=== PATIENT | female | born 1950 | race Caucasian/White ===

== ENCOUNTER 2017-05-02 02:40 | Emergency (ER) | payer OTHER, MEDICARE ==
[2017-05-02 02:47] VITALS: RESP 18; TEMP 97.9
[2017-05-02] MEDS ORDERED: ACETAMINOPHEN TAB 500 MG TAB PO STA (03:01)
--- NOTE | 2017-05-02 03:09 | ED ---
Trauma HPI - General Chief Complaint: Extremity Injury, Upper Stated Complaint: Rib Pain, Fall, SOB Time Seen by Provider: 05/02/17 02:53 Source: patient Mode of arrival: ambulatory Limitations: no limitations - History of Present Illness Initial Comments: 67-year-old female patient presented to the emergency department today for evaluation of right rib pain after experiencing a fall at home. Patient states around 2 AM she was getting up into her bed when she fell striking her right ribs on the edge of her nightstand. Patient states that since then she has been having significant pain to the right lower ribs. States that she is having pain to the right shoulder as well. She states after hitting the nightstand she fell landing on her right shoulder. Reports increased pain with movement of the arm. She denies hitting her head or losing consciousness. She denies any neck or back pain. She denies any hemoptysis. She denies any use of anticoagulants. Patient denies any headache, dizziness, weakness, abdominal pain, nausea, vomiting, or difficulties with bowel movements or urination. - Related Data Allergies Allergy/AdvReac Type Severity Reaction Status Date / Time erythromycin base Allergy Rash/Hives Verified 05/02/17 02:49 Iodinated Contrast- Oral and Allergy Dyspnea Verified 05/02/17 02:49 IV Dye Penicillins Allergy Swelling Verified 05/02/17 02:49 prednisolone Allergy Rash/Hives Verified 05/02/17 02:49 sulfamethoxazole Allergy Rash/Hives Verified 05/02/17 02:49 [From Bactrim] trimethoprim [From Bactrim] Allergy Rash/Hives Verified 05/02/17 02:49 Review of Systems ROS Statement: Those systems with pertinent positive or pertinent negative responses have been documented in the HPI. ROS Other: All systems not noted in ROS Statement are negative. Past Medical History Past Medical History: Hypertension Additional Past Medical History / Comment(s): gout History of Any Multi-Drug Resistant Organisms: None Reported Past Surgical History: Appendectomy, Bowel Resection, Cholecystectomy, Tonsillectomy Additional Past Surgical History / Comment(s): uterine suppension Past Psychological History: No Psychological Hx Reported Smoking Status: Never smoker Past Alcohol Use History: None Reported Past Drug Use History: None Reported General Exam Limitations: no limitations General appearance: alert, in no apparent distress, other (This is a well- developed, obese female patient in no acute distress. Vital signs upon presentation are temperature 97.9F, pulse 81, respirations 18, blood pressure 149/78, pulse ox 98% on room air.) Eye exam: Present: normal appearance, PERRL, EOMI. Absent: scleral icterus, conjunctival injection, periorbital swelling ENT exam: Present: normal exam, normal oropharynx, mucous membranes moist Respiratory exam: Present: normal lung sounds bilaterally, chest wall tenderness (Right lower rib tenderness). Absent: respiratory distress, wheezes , rales, rhonchi, stridor Cardiovascular Exam: Present: regular rate, normal rhythm, normal heart sounds. Absent: systolic murmur, diastolic murmur, rubs, gallop, clicks GI/Abdominal exam: Present: soft, tenderness (Right upper quadrant and midepigastric tenderness), normal bowel sounds. Absent: distended, guarding, rebound, rigid Neurological exam: Present: alert, oriented X3, CN II-XII intact Psychiatric exam: Present: normal affect, normal mood Skin exam: Present: warm, dry, intact, normal color. Absent: rash Course Vital Signs 05/02/17 05/02/17 02:43 04:54 Temperature 97.9 F Pulse Rate 81 71 Respiratory 18 18 Rate Blood Pressure 149/78 136/62 O2 Sat by Pulse 98 94 L Oximetry - Reevaluation(s) Reevaluation #1: 05/02/17 03:12 I did expect to patient that we would be obtaining a CT scan of the chest and abdomen with contrast. She reported that she is ALLERGIC to IV contrast dye and refuses to have the test done. I explained to her that we could administer premedications to prevent ALLERGIC reaction, she again refused to have the test done with contrast. We will perform the computed tomography scan without contrast. Medical Decision Making - Medical Decision Making 67-year-old female patient presented to the emergency department today for evaluation after falling and striking her ribs on her nightstand. Physical examination did reveal right lower rib tenderness, right upper quadrant abdominal tenderness, midepigastric abdominal tenderness. Patient is also complaining of some right shoulder pain, there was tenderness over the AC joint. Neurovascular status to the right upper extremity was intact. Patient did refuse IV contrast for CT so we did perform the study without. CT was negative for any acute processes in the thoracic and abdominal cavities. There was evidence of subtle wedging of the T12 vertebra felt to be chronic. X-ray of the right shoulder was negative for any acute abnormalities. Patient also refused pain medications here in the department. I did discuss findings of the studies with her. We will discharge her home at this time to follow-up with her primary care physician for further evaluation of the compression deformity of the T12 vertebra. She is instructed to apply ice to the painful areas. She is instructed to use incentive spirometry to prevent pneumonia. She is instructed to return here immediately for any new, worsening, or concerning symptoms. She verbalizes understanding and agrees with this plan. - Radiology Data Radiology results: report reviewed, image reviewed 3 views of the right shoulder shows bones and joints are unremarkable with no acute fracture dislocation. Soft tissues are nonacute. Impression by Dr. Robles shows no acute radiographic findings. CT of the chest, abdomen, and pelvis was obtained without contrast. Report was reviewed in its entirety. Impression by Dr. Robles shows no evidence for acute fracture or acute thoracic findings. Subtle anterior wedging at T12 is favored to be chronic in the presence of extensive degenerative disc changes. Also there are no acute intra-abdominal findings. Characterization of the wrist is limited without IV contrast. Disposition Clinical Impression: Contusion of rib on right side, Sprain of right shoulder, T12 compression fracture Disposition: HOME SELF-CARE Condition: Good Instructions: Vertebral Compression Fracture (ED), Shoulder Sprain (ED), Rib Contusion (ED) Additional Instructions: Follow-up with your primary care physician for further evaluation. Take over- the-counter Tylenol for pain control. Apply ice to the painful areas 20 minutes at a time at least 4 times daily. Return here immediately for any new, worsening, or concerning symptoms. Referrals: Pawan Galarza DO [Primary Care Provider] - 1-2 days Time of Disposition: 04:55
--- NOTE | 2017-05-02 04:46 | CT ---
EXAM: CT Chest Without Intravenous Contrast CLINICAL HISTORY: ITS.REASON CT Reason: Pain TECHNIQUE: Axial computed tomography images of the chest without intravenous contrast. CTDI is 16.32 mGy and DLP is 1073 mGy-cm. This CT exam was performed using one or more of the following dose reduction techniques: automated exposure control, adjustment of the mA and/or kV according to patient size, and/or use of iterative reconstruction technique. Coronal and sagittal reformatted images were created and reviewed. COMPARISON: No relevant prior studies available. FINDINGS: Lungs: Unremarkable. No mass. No consolidation. Pleural space: Unremarkable. No pneumothorax. No significant effusion. Heart: Unremarkable. No cardiomegaly. No significant pericardial effusion. Bones/joints: Slight anterior compression at the superior endplate of T12, favored to be chronic. Multilevel degenerative disc disease is present with disc space height loss and osteophytosis, as well as mild Schmorl's node formation. No dislocation. No acute fracture. Soft tissues: Unremarkable. Vasculature: Unremarkable. No thoracic aortic aneurysm. Lymph nodes: Unremarkable. No enlarged lymph nodes. Other findings: Old granulomatous changes. IMPRESSION: 1. No evidence for acute fracture or acute thoracic findings. 2. Subtle anterior wedging at T12 is favored to be chronic in the setting of extensive degenerative disc changes. EXAM: CT Abdomen and Pelvis Without Intravenous Contrast CLINICAL HISTORY: ITS.REASON CT Reason: Pain TECHNIQUE: Axial computed tomography images of the abdomen and pelvis without intravenous contrast. CTDI is 16.32 mGy and DLP is 1073 mGy-cm This CT exam was performed using one or more of the following dose reduction techniques: automated exposure control, adjustment of the mA and/or kV according to patient size, and/or use of iterative reconstruction technique. Coronal and sagittal reformatted images were created and reviewed. COMPARISON: No relevant prior studies available. FINDINGS: Lower thorax: No acute findings. ABDOMEN: Liver: Unremarkable. Gallbladder and bile ducts: Cholecystectomy clips are noted in the gallbladder fossa. No ductal dilation. Pancreas: Unremarkable. No ductal dilation. Spleen: Unremarkable. No splenomegaly. Adrenals: Unremarkable. No mass. Kidneys and ureters: Unremarkable. No obstructing stones. No hydronephrosis. Stomach and bowel: Small duodenal diverticulum is noted. No obstruction. No mucosal thickening. Appendix: No findings to suggest acute appendicitis. PELVIS: Bladder: Unremarkable. No stones. Reproductive: Unremarkable as visualized. ABDOMEN and PELVIS: Intraperitoneal space: Unremarkable. No free air. No significant fluid collection. Bones/joints: Multilevel degenerative disc disease and facet arthropathy. There is a chronic grade 1 anterolisthesis of L4 on L5. No acute fracture. No dislocation. Soft tissues: Small fatty umbilical hernia. Vasculature: Mild atherosclerosis. No abdominal aortic aneurysm. Lymph nodes: Unremarkable. No enlarged lymph nodes. IMPRESSION: 1. No acute intra-abdominal findings. Characterization of the viscera limited without IV contrast.
--- NOTE | 2017-05-02 04:48 | XR ---
EXAM: XR Right Shoulder Complete, 2 or More Views CLINICAL HISTORY: ITS.REASON XR Reason: Pain TECHNIQUE: Two or more views of the right shoulder. COMPARISON: No relevant prior studies available. FINDINGS: Bones/joints: No acute fracture. No dislocation. Soft tissues: Nonacute. IMPRESSION: No acute radiographic findings.
[2017-05-02 04:57] VITALS: BP 136/62; PULSE 71
== END 2017-05-02 05:07 | disposition home or self-care (01) ==
LOC: EC 02:40
DX: S22.080A Wedge compression fracture of T11-T12 vertebra, initial encounter for closed fracture (principal); S43.401A Unspecified sprain of right shoulder joint, initial encounter; S20.211A Contusion of right front wall of thorax, initial encounter; R10.31 Right lower quadrant pain; R10.13 Epigastric pain; Z88.0 Allergy status to penicillin; Z88.2 Allergy status to sulfonamides; Z88.1 Allergy status to other antibiotic agents; Z91.041 Radiographic dye allergy status; Z88.8 Allergy status to other drugs, medicaments and biological substances; Z53.29 Procedure and treatment not carried out because of patient's decision for other reasons; W06.XXXA Fall from bed, initial encounter; Y92.009 Unspecified place in unspecified non-institutional (private) residence as the place of occurrence of the external cause
CPT/HCPCS: 71250; 74176; 99284

== ENCOUNTER → 2017-06-23 | Outpatient (CLI) | payer OTHER, MEDICARE ==
--- NOTE | 2017-06-23 10:55 | US ---
EXAMINATION TYPE: US duplex aorta DATE OF EXAM: 06/23/2017 COMPARISON: CT 2018 CLINICAL HISTORY: I71.4 Abdominal aortic aneurysm; controlled HTN EXAM MEASUREMENTS: Abdominal Aorta: Proximal: 1.9cm Transverse Mid: 2.4cm Transverse Distal: 1.5cm A/P Bifurcation: not well seen; 1.3cm Transverse Right ERIKA and 1.4cm Transverse Left ERIKA IMPRESSION: No evidence for abdominal aortic aneurysm.
== END | disposition home or self-care (01) ==
LOC: RADUSWWP 10:19
PROVIDERS: ATTEND Family Medicine
DX: I71.4 Abdominal aortic aneurysm, without rupture (principal)
CPT/HCPCS: 76706

== ENCOUNTER 2017-09-02 19:31 | Emergency (ER) | payer OTHER, MEDICARE ==
[2017-09-02] MEDS ORDERED: ACETAMINOPHEN TAB 500 MG TAB PO STA (20:27)
--- NOTE | 2017-09-02 21:04 | ED ---
Extremity Problem HPI - General Chief complaint: Extremity Problem,Nontraumatic Stated complaint: Swelling/Pain in leg Time Seen by Provider: 09/02/17 20:02 Source: patient Mode of arrival: wheelchair Limitations: no limitations - History of Present Illness Initial comments: Patient is a 67-year-old female presents with a chief complaint of right-sided lower extremity pain and swelling. The patient states that her symptoms began around 11:00 this morning. She was at work when these occurred, she cannot identify an inciting incident. There are no aggravating or alleviating factors. The patient states that she has a history of a DVT that happened years ago. She has not been on blood thinners in many years. Patient states that her last DVT is unknown whether it was provoked or not. At this time, patient denies any shortness of breath, chest pain, or other symptoms. - Related Data Home Medications Medication Instructions Recorded Confirmed Atenolol [Tenormin] 25 mg PO DAILY 09/02/17 09/02/17 Multivitamins, Thera [Multivitamin 1 tab PO DAILY 09/02/17 09/02/17 (formulary)] Ranitidine HCl [Zantac] 150 mg PO BID 09/02/17 09/02/17 Triamterene-Hctz 37.5-25Mg 1 cap PO DAILY 09/02/17 09/02/17 [Dyazide 37.5-25 Capsule] Allergies Allergy/AdvReac Type Severity Reaction Status Date / Time erythromycin base Allergy Rash/Hives Verified 09/02/17 20:07 Iodinated Contrast- Oral and Allergy Dyspnea Verified 09/02/17 20:07 IV Dye Penicillins Allergy Swelling Verified 09/02/17 20:07 prednisolone Allergy Rash/Hives Verified 09/02/17 20:07 sulfamethoxazole Allergy Rash/Hives Verified 09/02/17 20:07 [From Bactrim] trimethoprim [From Bactrim] Allergy Rash/Hives Verified 09/02/17 20:07 Review of Systems ROS Statement: Those systems with pertinent positive or pertinent negative responses have been documented in the HPI. ROS Other: All systems not noted in ROS Statement are negative. Musculoskeletal: Reports: myalgia, other (Lower extremity edema) Past Medical History Past Medical History: Hypertension Additional Past Medical History / Comment(s): gout History of Any Multi-Drug Resistant Organisms: None Reported Past Surgical History: Appendectomy, Bowel Resection, Cholecystectomy, Tonsillectomy Additional Past Surgical History / Comment(s): uterine suspension Past Psychological History: No Psychological Hx Reported Smoking Status: Never smoker Past Alcohol Use History: None Reported Past Drug Use History: None Reported General Exam Limitations: no limitations General appearance: alert, in no apparent distress Head exam: Present: atraumatic, normocephalic Eye exam: Present: normal appearance ENT exam: Present: normal exam Neck exam: Present: normal inspection Respiratory exam: Present: normal lung sounds bilaterally. Absent: respiratory distress, wheezes Cardiovascular Exam: Present: regular rate, normal rhythm GI/Abdominal exam: Present: soft. Absent: distended, tenderness Rectal exam: Present: deferred Extremities exam: Present: normal inspection, tenderness, calf tenderness, other (Patient has tenderness of the right lower calf. Palpation reveals tenderness along the deep venous system. The right lower extremity is mildly more swollen when compared to left. There are 2+ DP pulses bilaterally. Cap refill is less than 2 seconds bilaterally.) Back exam: Present: normal inspection Neurological exam: Present: alert, oriented X3 Psychiatric exam: Present: normal affect, normal mood Skin exam: Present: warm, dry, intact Course Vital Signs 09/02/17 19:39 Temperature 98.5 F Pulse Rate 67 Respiratory 16 Rate Blood Pressure 177/81 O2 Sat by Pulse 97 Oximetry Medical Decision Making - Medical Decision Making Patient presents with a chief complaint of right lower extremity pain and swelling. She has a history of DVT many years ago. On initial evaluation, vital are stable, patient is in no acute distress. Patient will be evaluated with venous Doppler of the right lower extremity. Patient given Tylenol for pain. Patient denies any chest pain or shortness of breath at this time. 9:35 PM Ultrasound images of the venous system in the right lower extremity are negative for DVT. At this time, does not appear to be life threatening etiology of right lower extremity pain and swelling. Considered heart failure however less likely given the clear lung sounds, lack of shortness of breath or dyspnea, and lack of his medical history. Patient is able to bear weight and really well without assistance. At this time, patient is stable for discharge and follow-up with primary care in 1-2 days. Patient was instructed to take Tylenol for pain as needed. Patient was instructed to return to the emergency department if symptoms worsen or change. She was given explicit signs and symptoms that should prompt immediate return. She verbalizes understanding. Disposition Clinical Impression: Leg pain, Deep venous thrombosis of upper extremity Disposition: HOME SELF-CARE Condition: Good Is patient prescribed a controlled substance at d/c from ED?: No Referrals: Pawan Galarza DO [Primary Care Provider] - 1-2 days
--- NOTE | 2017-09-02 21:28 | US ---
EXAMINATION TYPE: US venous doppler duplex LE RT DATE OF EXAM: 09/02/2017 8:27 PM COMPARISON: NONE CLINICAL HISTORY: Pain. Right leg pain. SIDE PERFORMED: Right TECHNIQUE: The lower extremity deep venous system is examined utilizing real time linear array sonog alvina with graded compression, doppler sonography and color-flow sonography. VESSELS IMAGED: External Iliac Vein (EIV) Common Femoral Vein Deep Femoral Vein Greater Saphenous Vein * Femoral Vein Popliteal Vein Small Saphenous Vein * Right Leg: Negative for DVT No evidence of DVT right leg. IMPRESSION: Negative exam. No evidence of deep venous thrombosis in the right leg.
[2017-09-02 21:57] VITALS: BP 179/74; PULSE 60; RESP 18; TEMP 98.4
== END 2017-09-02 21:57 | disposition home or self-care (01) ==
LOC: EC 19:31
DX: M79.661 Pain in right lower leg (principal); I82.629 Acute embolism and thrombosis of deep veins of unspecified upper extremity; I10 Essential (primary) hypertension; Z88.0 Allergy status to penicillin; Z88.1 Allergy status to other antibiotic agents; Z88.2 Allergy status to sulfonamides; Z88.8 Allergy status to other drugs, medicaments and biological substances; Z91.041 Radiographic dye allergy status; Z79.899 Other long term (current) drug therapy
CPT/HCPCS: 99283

== ENCOUNTER → 2018-09-25 | Outpatient (CLI) | payer BC | END | disposition home or self-care (01) | LOC: LABPAT 12:31 | PROVIDERS: ATTEND Surgery | DX: Z01.812 Encounter for preprocedural laboratory examination (principal); Z01.818 Encounter for other preprocedural examination | CPT/HCPCS: 84132; 93005 ==

== ENCOUNTER 2018-09-28 09:27 | Day surgery (SDC) | payer BC ==
[2018-09-25 08:39] VITALS: BMI 49.4
[~2018-09-28 09:27] MED LIST: HEPARIN SODIUM,PORCINE 5,000 UNIT/ML 1 ML VIAL SQ ONE; LACTATED RINGERS 1,000 ML IV SCH; LIDOCAINE 1% 20 ML VIAL (10MG/ML) FOR IV START INTRADERMA PRN; ONDANSETRON 4 MG/2 ML VIAL IVP ONE; Pre Op ABX Message 1 EACH MISC MISCELLANE ONE; fentaNYL (PF) 50 MCG/ML 2 ML AMP IVP PRN
[2018-09-28] MEDS ORDERED: ceFAZolin 3 GM in SODIUM CHLORIDE 0.9% 100 ML IVPB ONE (10:27)
--- NOTE | 2018-09-28 11:12 | NM ---
EXAMINATION TYPE: NM sentinel node injection DATE OF EXAM: 09/28/2018 COMPARISON: 09/08/2018 HISTORY: Right breast cancer TECHNIQUE AND FINDINGS: The procedure of sentinel lymph node injection was explained to the patient. The benefits, alternatives, and risks were discussed. An informed consent was then obtained. Overlying skin is cleaned with sterile alcohol. Following this, 521 uCi Tc99m Tilmanocept was inject ed in the upper outer aspect of the right nipple intradermally. The patient tolerated the procedure well without any immediate complication. The patient was kept in the radiology department for short stay after the procedure and then taken to surgery for surgical p rocedure what is presumed intraoperative gamma probe will be used for sentinel lymph node detection. IMPRESSION: Right breast radiotracer injection for sentinel node localization as above.
[2018-09-28] MEDS ORDERED: LIDOCAINE 1% INJ 10MG/ML (20 ML MDV) SQ ONE (11:21)
[2018-09-28] MEDS ORDERED: METHYLENE BLUE 10 MG/ML (10 ML VIAL) MISCELLANE ONE (13:04)
[2018-09-28] MEDS ORDERED: LIDOCAINE 1% INJ 10MG/ML (20 ML MDV) ONE (13:04)
[2018-09-28] MEDS ORDERED: SUCCINYLCHOLINE CHLORIDE 100 MG/5 ML SYR IV ONE (13:04)
[2018-09-28] MEDS ORDERED: MIDAZOLAM 2 MG/2 ML VIAL ONE (13:04)
[2018-09-28] MEDS ORDERED: fentaNYL (PF) 50 MCG/ML 2 ML AMP ONE (13:04)
[2018-09-28] MEDS ORDERED: ePHEDrine SULFATE/0.9% NACL/PF 50 MG/5 ML SYRINGE IV ONE (13:04)
[2018-09-28] MEDS ORDERED: PROPOFOL 10 MG/ML 20 ML VIAL IV ONE (13:04)
[2018-09-28] MEDS ORDERED: LACTATED RINGERS 1,000 ML IV ONE (14:26)
[2018-09-28] MEDS ORDERED: traMADol 50 MG TAB PO PRN (14:54)
[2018-09-28] MEDS ORDERED: NALOXONE 0.4 MG/ML 1 ML VIAL IV PRN (14:54)
--- NOTE | 2018-09-28 14:58 | P.OP ---
Date of Procedure: 09/28/18 Procedure(s) Performed: REOPERATIVE DIAGNOSIS: Right breast cancer POSTOPERATIVE DIAGNOSIS: Same PROCEDURE: Right Breast wire localization lumpectomy with sentinel lymph node biopsy SURGEON: Kayli EBL: Minimal ANESTHESIA: General COMPLICATIONS: None OPERATIVE PROCEDURE: Patient was placed on the operating room table in the supine position. 2 mL of methylene blue was injected into the subareolar space. The breast was then massaged for 5 minutes. The breast was prepped and draped in usual sterile fashion. The right axilla was addressed at that time. The hot spot in the right axilla was identified. A small curvilinear incision was made using the scalpel. Dissection down through the subcutaneous tissues took place using electrocautery. Using the neoprobe I identified a total of 2 sentinel lymph nodes. Both of these were blue in color. Clinically these appeared benign. They were soft and appropriate size. The operative site was inspected and no bleeding was seen. The subcutaneous tissues were closed using 3-0 Vicryl sutures. The skin was closed using 4-0 Monocryl sutures. The wire entrance site was then addressed. This was present at the 9:00 location. A curvilinear incision was made medial to the wire entrance site. Dissection superficially took place using electrocautery until the wire was brought out through this incision site. I followed the wire down into the breast tissue. An adequate lumpectomy specimen then took place around the wire. Margins of 1.5-2 cm worth attempted to be achieved. Palpation of the specimen suggested that the inferior margins were somewhat close. I took an additional margin inferiorly and this margin was painted the appropriate color on the new margin side. The initial specimen was also painted the appropriate 6 colors. Clips were used to identify the lumpectomy cavity. The clip was confirmed to be within the lumpectomy specimen by radiology. The subcutaneous tissues were closed using 3-0 Vicryl sutures. The skin was closed using a running 4-0 Monocryl stitch. Skin glue and sterile dressings were then applied. DISPOSITION: Stable to recovery room
[2018-09-28 15:08] VITALS: TEMP 98.4
[2018-09-28 15:54] VITALS: RESP 16
[2018-09-28] MEDS ORDERED: ACETAMINOPHEN IV (For NPO) 1,000 MG/100 ML VIAL IVPB ONE (16:10)
[2018-09-28 16:44] VITALS: BP 132/81; PULSE 70
--- NOTE | 2018-09-29 08:34 | MM ---
EXAMINATION TYPE: MG pre op needle loc RT DATE OF EXAM: 09/28/2018 COMPARISON: 06/19/2018, 09/08/2018 CLINICAL HISTORY: Abnormal core biopsy right breast TECHNIQUE: Needle localization with wire placement and surgical excision of area of concern in the right breast. FINDINGS: The procedure of needle localization with wire placement and than surgical excision was explained to the patient. Benefits, alternatives, and risks were discussed. An informed consent was then obtained. The shortest pathway for procedure was chosen. Shortest pathway was lateral approach. The overlying skin was prepped and draped in usual sterile fashion. Lidocaine buffered with bicarbonate was used as anesthetic into the skin and subcutaneous tissue up to the level of area of concern. A 5 cm needle was used. It was placed via a lateral approach under mammographic guidance. Subsequent 90 degrees mammogram show the needle to be in satisfactory position relative to the targeted area. At this point, wire was placed and the needle was withdrawn. The wire was fixed to patient's skin. Images were marked for surgeon. The patient tolerated the procedure well without any immediate complication. The patient was kept in the radiology department for short stay after the procedure and then taken to surgery for surgical excision. Targeted biopsy clip and lesion and wire are identified in specimen mammogram. The patient was kept in hospital for short stay after the procedure and then discharged home in stable condition. IMPRESSION: Successful, uncomplicated needle localization with wire placement and surgical excision of biopsy clip and lesion in the right breast, full pathology results to follow. Pathology Results: Malignant A. SENTINEL LYMPH NODES, RIGHT BREAST: Two lymph nodes, one node positive for isolated tumor cells. CK7 and MARTIN immunoperoxidase stains are confirmatory (controls appropriate). B. 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 Margins negative for malignancy. Tumor is focally less than 1 mm from the green inked/inferior margin. See Surgical Pathology Cancer Case Summary. C. RIGHT BREAST, NEW INFERIOR MARGIN, EXCISION: Benign breast tissue. Recommendation Surgical consult of the right breast. MIKE
== END 2018-09-28 17:28 | disposition home or self-care (01) ==
LOC: OR 09:27
PROVIDERS: ATTEND Surgery
DX: C50.911 Malignant neoplasm of unspecified site of right female breast (principal); Z88.5 Allergy status to narcotic agent; Z88.0 Allergy status to penicillin; Z88.2 Allergy status to sulfonamides; Z88.1 Allergy status to other antibiotic agents; Z79.899 Other long term (current) drug therapy
CPT/HCPCS: 19301; 88342; 88307; 88341; 76098; 19281; 38792; A9520; J2250; J1644; J0690; J2001; Q9968; J3010; J0131; J0330; J2704

== ENCOUNTER → 2018-11-25 | Outpatient (CLI) | payer BC ==
[2018-11-25 09:53] LABS: Basophils # (A) 0.1 k/uL (0-0.2); Basophils % (A) 2 %; Eosinophils # (A) 0.1 k/uL (0-0.7); Eosinophils % (A) 2 %; HCT 45.1 % (34.0-46.0); HGB 14.7 gm/dL (11.4-16.0); Lymphocytes # (A) 0.8 k/uL (1.0-4.8); Lymphocytes % (A) 15 %; MCH 28.8 pg (25.0-35.0); MCHC 32.7 g/dL (31.0-37.0); Mean Platelet Volume 6.6; Monocytes # (A) 0.4 k/uL (0-1.0); Monocytes % (A) 8 %; Neutrophils # (A) 3.9 k/uL (1.3-7.7); Neutrophils % (A) 70 %; Platelet Count 193 k/uL (150-450); RBC 5.12 m/uL (3.80-5.40); RDW 13.7 % (11.5-15.5); WBC 5.5 k/uL (3.8-10.6)
[2018-11-25 17:20] LABS: African American GFR (CKD) 77.2 (60.0-200.0); Albumin 4.2 g/dL (3.80-4.90); Albumin/Globulin Ratio 2.1 (1.60-3.17); BUN/Creat Ratio 17.78 Ratio (12.00-20.00); Calcium 9.3 mg/dL (8.7-10.3); Chol/HDL Ratio 4.52; LDL Cholesterol,Calculated 135.2 mg/dL (0.0-131.0); Potassium 4.3 mmol/L (3.5-5.5); Total Bilirubin 0.7 mg/dL (0.2-1.2); Total Protein 6.2 g/dL (6.2-8.2); Uric Acid 8.7 mg/dL (2.9-7.7); VLDL Calculation 33.8 mg/dL (5.00-40.00)
== END | disposition home or self-care (01) ==
LOC: LABWHC1 09:09
PROVIDERS: ATTEND Family Medicine
DX: M10.9 Gout, unspecified (principal); Z13.29 Encounter for screening for other suspected endocrine disorder; Z13.220 Encounter for screening for lipoid disorders
CPT/HCPCS: 36415; 80053; 80061; 84443; 84550; 85025

== ENCOUNTER → 2019-03-05 | Outpatient (CLI) | payer BC, OTHER ==
--- NOTE | 2019-03-05 09:45 | MM ---
Reason for exam: follow-up at short interval from prior study. Last mammogram was performed 7 years and 3 months ago. History: Patient is postmenopausal and has history of breast cancer at age 68. Malignant MG pre op needle loc RT of the right breast, September 28, 2018. Lumpectomy of the right breast, September 28, 2018. Malignant MG stereo VAD BX RT of the right breast, September 08, 2018. Benign excisional biopsy of the left breast, 1997. Taking progesterone for 3 months beginning at age 57. Physical Findings: Nurse did not find any significant physical abnormalities on exam. MG 3D Diag Mammo W/Cad BRIANA Bilateral CC and MLO view(s) were taken. Prior study comparison: December 13, 2011, CAD bilateral diagnostic mammogram. February 22, 2011, bilateral digital screening mammo w/CAD. The breast tissue is heterogeneously dense. This may lower the sensitivity of mammography. Asymmetry greater in the right breast. Post surgical changes right upper outer quadrant. No significant new findings when compared with previous films. These results were verbally communicated with the patient and result sheet given to the patient on 03/05/19. ASSESSMENT: Benign, BI-RAD 2 RECOMMENDATION: Follow-up diagnostic mammogram of both breasts in 1 year.
== END | disposition home or self-care (01) ==
LOC: RADMAMWWP 06:56
PROVIDERS: ATTEND Surgery
DX: R92.8 Other abnormal and inconclusive findings on diagnostic imaging of breast (principal)
CPT/HCPCS: 77062; 77066

== ENCOUNTER → 2019-03-11 | Outpatient (CLI) | payer BC, OTHER ==
--- NOTE | 2019-03-12 06:56 | US ---
EXAMINATION TYPE: US transvaginal DATE OF EXAM: 03/11/2019 COMPARISON: Prior pelvic ultrasound February 13, 2010 CLINICAL HISTORY: N95.0 Post menopausal Bleeding. Intermittent spotting TECHNIQUE: Transvaginal (TV). Date of LMP: unknown EXAM MEASUREMENTS: Uterus: 9.1 x 4.1 x 5.3 cm Endometrial Stripe: 0.9 cm Right Ovary: unable to visualize Left Ovary: unable to visualize 1. Uterus: Anteverted heterogeneous, Nabothian cysts noted, possible fibroid anterior body = 1.9 x 1.3cm 2. Endometrium: appears slightly thickened 3. Right Ovary: Obscured by overlying bowel gas 4. Left Ovary: Obscured by overlying bowel gas 5. Bilateral Adnexa: appears wnl 6. Posterior cul-de-sac: wnl Nabothian cysts are seen in the cervix on initial images. Uterus is overall heterogeneous with endome trium measuring up to 9 mm which is thickened for postmenopausal female. There is suggestion of subse denver small 1.3 cm fibroid on image 22. No free fluid. IMPRESSION: Abnormal thickening of endometrial stripe more prominent than 2010 study, further investi gation with endometrial biopsy advised to rule out carcinoma.
== END | disposition home or self-care (01) ==
LOC: RADUSWWP 16:39
PROVIDERS: ATTEND Obstetrics & Gynecology
DX: R93.89 Abnormal findings on diagnostic imaging of other specified body structures (principal); N95.0 Postmenopausal bleeding
CPT/HCPCS: 76830

== ENCOUNTER → 2019-05-25 | Outpatient (CLI) | payer BC ==
[2019-05-25 09:35] LABS: Basophils % (A) 0 %; Eosinophils # (A) 0.1 k/uL (0-0.7); Eosinophils % (A) 2 %; HCT 44.2 % (34.0-46.0); HGB 14.3 gm/dL (11.4-16.0); Lymphocytes % (A) 18 %; MCH 28.7 pg (25.0-35.0); MCHC 32.4 g/dL (31.0-37.0); MCV 88.5 fL (80.0-100.0); Mean Platelet Volume 7.1; Monocytes # (A) 0.4 k/uL (0-1.0); Monocytes % (A) 6 %; Neutrophils # (A) 4.2 k/uL (1.3-7.7); Neutrophils % (A) 72 %; Platelet Count 293 k/uL (150-450); RBC 4.99 m/uL (3.80-5.40); RDW 13.2 % (11.5-15.5); WBC 5.8 k/uL (3.8-10.6)
[2019-05-25 17:31] LABS: African American GFR (CKD) 88.4 (60.0-200.0); Albumin 4.2 g/dL (3.80-4.90); Albumin/Globulin Ratio 1.68 (1.60-3.17); Anion Gap 13.1 mmol/L (4.00-12.00); BUN/Creat Ratio 17.5 Ratio (12.00-20.00); Calcium 9.5 mg/dL (8.7-10.3); Carbon Dioxide 24.9 mmol/L (21.6-31.8); Globulin 2.5 g/dL (1.6-3.3); Non-African American GFR(CKD) 76.3 (60.0-200.0); Potassium 4.4 mmol/L (3.5-5.5); Total Bilirubin 0.5 mg/dL (0.2-1.2); Total Protein 6.7 g/dL (6.2-8.2)
[2019-05-25 18:17] LABS: Cancer Antigen 153 18.2 U/mL (0.0-32.3)
== END | disposition home or self-care (01) ==
LOC: LABWHC1 08:00
PROVIDERS: ATTEND Internal Medicine Hematology & Oncology
DX: C50.411 Malignant neoplasm of upper-outer quadrant of right female breast (principal)
CPT/HCPCS: 36415; 80053; 85025; 86300

== ENCOUNTER → 2019-07-28 | Outpatient (CLI) | payer BC ==
--- NOTE | 2019-07-28 08:02 | US ---
EXAMINATION TYPE: US venous doppler duplex LE RT DATE OF EXAM: 07/28/2019 7:34 AM COMPARISON: NONE CLINICAL HISTORY: M79.661 Pain in R lower limb, R22.2 swelling. Pain and edema right leg for 1 week SIDE PERFORMED: right TECHNIQUE: The lower extremity deep venous system is examined utilizing real time linear array sonog alvina with graded compression, doppler sonography and color-flow sonography. VESSELS IMAGED: External Iliac Vein (EIV) Common Femoral Vein Deep Femoral Vein Greater Saphenous Vein * Femoral Vein Popliteal Vein Small Saphenous Vein * Proximal Calf Veins (* superficial vessels) Right Leg: no evidence of DVT IMPRESSION: No evidence for DVT at this time.
[2019-07-28 08:54] LABS: Basophils % (A) 1 %; Eosinophils # (A) 0.1 k/uL (0-0.7); Eosinophils % (A) 2 %; HCT 43.9 % (34.0-46.0); HGB 14.8 gm/dL (11.4-16.0); Lymphocytes # (A) 0.8 k/uL (1.0-4.8); Lymphocytes % (A) 13 %; MCH 29.9 pg (25.0-35.0); MCHC 33.6 g/dL (31.0-37.0); MCV 88.7 fL (80.0-100.0); Monocytes # (A) 0.4 k/uL (0-1.0); Monocytes % (A) 7 %; Neutrophils # (A) 4.8 k/uL (1.3-7.7); Neutrophils % (A) 76 %; Platelet Count 295 k/uL (150-450); RBC 4.95 m/uL (3.80-5.40); RDW 13.4 % (11.5-15.5); WBC 6.3 k/uL (3.8-10.6)
[2019-07-28 09:00] LABS: ALT 30 U/L (4-34); AST 29 U/L (14-36); African American GFR (CKD) >90 (>60 ml/min/1.73 sqM); Albumin 4.2 g/dL (3.5-5.0); Alkaline Phosphatase 112 U/L (38-126); Anion Gap 12 mmol/L; Blood Urea Nitrogen 16 mg/dL (7-17); Calcium 9.7 mg/dL (8.4-10.2); Carbon Dioxide 27 mmol/L (22-30); Chloride 102 mmol/L (98-107); Glucose 110 mg/dL (74-99); Non-African American GFR(CKD) 79 (>60 ml/min/1.73 sqM); Potassium 4.3 mmol/L (3.5-5.1); Sodium 141 mmol/L (137-145); Total Bilirubin 0.6 mg/dL (0.2-1.3); Total Protein 7.5 g/dL (6.3-8.2); Uric Acid 7.9 mg/dL (3.7-7.4)
[2019-07-28 16:50] LABS: Cancer Antigen 153 15.7 U/mL (0.0-32.3)
== END | disposition home or self-care (01) ==
LOC: RADUSWWP 07:13
PROVIDERS: ATTEND Family Medicine
DX: M79.661 Pain in right lower leg (principal)
CPT/HCPCS: 80053; 84550; 85025; 86300

== ENCOUNTER → 2019-11-23 | Outpatient (CLI) | payer BC ==
[2019-11-25 11:07] LABS: African American GFR (CKD) 67.5 (60.0-200.0); Albumin 4.3 g/dL (3.80-4.90); Albumin/Globulin Ratio 1.79 (1.60-3.17); Anion Gap 14.4 mmol/L (4.00-12.00); Calcium 9.7 mg/dL (8.7-10.3); Carbon Dioxide 22.6 mmol/L (21.6-31.8); Globulin 2.4 g/dL (1.6-3.3); Non-African American GFR(CKD) 58.2 (60.0-200.0); Potassium 4.3 mmol/L (3.5-5.5); Total Bilirubin 0.6 mg/dL (0.2-1.2); Total Protein 6.7 g/dL (6.2-8.2)
== END | disposition home or self-care (01) ==
LOC: LABWHC1 07:09
PROVIDERS: ATTEND Internal Medicine Hematology & Oncology
DX: C50.411 Malignant neoplasm of upper-outer quadrant of right female breast (principal)
CPT/HCPCS: 36415; 82306; 86300

== ENCOUNTER → 2020-01-27 | Outpatient (CLI) | payer BC ==
--- NOTE | 2020-01-27 14:26 | MM ---
Reason for exam: additional evaluation requested from prior study. Last mammogram was performed 11 months ago. History: Patient is postmenopausal and has history of breast cancer at age 68. Malignant MG pre op needle loc RT of the right breast, September 28, 2018. Lumpectomy of the right breast, September 28, 2018. Malignant MG stereo VAD BX RT of the right breast, September 08, 2018. Benign excisional biopsy of the left breast, 1997. Taking progesterone for 3 months beginning at age 57. Taking antineoplastic for 1 year. Physical Findings: Nurse did not find any significant physical abnormalities on exam. MG 3D Diag Mammo W/Cad BRIANA Bilateral CC and MLO view(s) were taken. Prior study comparison: March 05, 2019, bilateral MG 3d diag mammo w/cad BRIANA. December 13, 2011, CAD bilateral diagnostic mammogram. There are scattered fibroglandular densities. No significant new findings when compared with previous films. These results were verbally communicated with the patient and result sheet given to the patient on 01/27/20. ASSESSMENT: Benign, BI-RAD 2 RECOMMENDATION: Follow-up diagnostic mammogram of both breasts in 1 year. Manage patient on a clinical basis.
== END | disposition home or self-care (01) ==
LOC: RADMAMWWP 13:42
PROVIDERS: ATTEND Surgery
DX: Z08 Encounter for follow-up examination after completed treatment for malignant neoplasm (principal); Z85.3 Personal history of malignant neoplasm of breast
CPT/HCPCS: 77062; 77066

== ENCOUNTER → 2020-03-16 | Outpatient (CLI) | payer BC ==
[2020-03-16 12:32] LABS: Basophils % (A) 1 %; Eosinophils # (A) 0.1 k/uL (0-0.7); Eosinophils % (A) 2 %; HGB 15.4 gm/dL (11.4-16.0); Lymphocytes % (A) 21 %; MCH 29.4 pg (25.0-35.0); MCHC 33.5 g/dL (31.0-37.0); MCV 87.8 fL (80.0-100.0); Mean Platelet Volume 6.7; Monocytes # (A) 0.3 k/uL (0-1.0); Monocytes % (A) 7 %; Neutrophils # (A) 3.2 k/uL (1.3-7.7); Neutrophils % (A) 68 %; Platelet Count 208 k/uL (150-450); RBC 5.23 m/uL (3.80-5.40); RDW 12.8 % (11.5-15.5); WBC 4.7 k/uL (3.8-10.6)
[2020-03-16 20:01] LABS: African American GFR (CKD) 76.7 (60.0-200.0); Albumin 4.4 g/dL (3.80-4.90); Albumin/Globulin Ratio 1.91 (1.60-3.17); Anion Gap 7.9 mmol/L (4.00-12.00); BUN/Creat Ratio 16.67 Ratio (12.00-20.00); Calcium 9.4 mg/dL (8.7-10.3); Carbon Dioxide 27.1 mmol/L (21.6-31.8); Globulin 2.3 g/dL (1.6-3.3); Non-African American GFR(CKD) 66.2 (60.0-200.0); Potassium 4.2 mmol/L (3.5-5.5); Total Bilirubin 0.6 mg/dL (0.2-1.2); Total Protein 6.7 g/dL (6.2-8.2)
[2020-03-16 20:49] LABS: Cancer Antigen 153 20.1 U/mL (0.0-32.3)
== END | disposition home or self-care (01) ==
LOC: LABWHC1 11:48
PROVIDERS: ATTEND Family Medicine
DX: C50.411 Malignant neoplasm of upper-outer quadrant of right female breast (principal)
CPT/HCPCS: 36415; 80053; 85025; 86300

== ENCOUNTER → 2020-09-21 | Outpatient (CLI) | payer BC, OTHER ==
--- NOTE | 2020-09-21 09:19 | MM ---
Reason for exam: additional evaluation requested from prior study. Last mammogram was performed 8 months ago. History: Patient is postmenopausal and has history of breast cancer at age 68. Malignant MG pre op needle loc RT of the right breast, September 28, 2018. Lumpectomy of the right breast, September 28, 2018. Malignant MG stereo VAD BX RT of the right breast, September 08, 2018. Benign excisional biopsy of the left breast, 1997. Taking progesterone for 3 months beginning at age 57. Taking antineoplastic beginning at age 68. Physical Findings: Nurse did not find any significant physical abnormalities on exam. MG 3D Diag Mammo W/Cad BRIANA Bilateral CC and MLO view(s) were taken. Prior study comparison: January 27, 2020, bilateral MG 3d diag mammo w/cad BRIANA. March 05, 2019, bilateral MG 3d diag mammo w/cad BRIANA. Right new dystrophic appearing calcifications subareolar, probably benign. Otherwise stable right post lumpectomy and radiation change. Left breast negative. These results were verbally communicated with the patient and result sheet given to the patient on 09/21/20. ASSESSMENT: Probably benign, BI-RAD 3 RECOMMENDATION: Follow-up diagnostic mammogram of the right breast in 6 months.
== END | disposition home or self-care (01) ==
LOC: RADMAMWWP 07:08
PROVIDERS: ATTEND Obstetrics & Gynecology
DX: R92.1 Mammographic calcification found on diagnostic imaging of breast (principal); Z85.3 Personal history of malignant neoplasm of breast; Z79.899 Other long term (current) drug therapy
CPT/HCPCS: 77062; 77066

== ENCOUNTER → 2020-10-04 | Outpatient (CLI) | payer BC, OTHER ==
--- NOTE | 2020-10-04 08:53 | CT ---
EXAMINATION TYPE: CT abdomen pelvis wo con DATE OF EXAM: 10/04/2020 COMPARISON: 05/02/2017 HISTORY: Abdominal and gas pain. CT DLP: 1465.7 mGycm Examination of the solid and hollow viscera is limited given the lack of contrast. FINDINGS: LUNG BASES: No evidence for nodule. No evidence for infiltrate. Small hiatal hernia noted. LIVER/GB: The gallbladder is surgically absent. All No space-occupying hepatic lesion. PANCREAS: No pancreatic mass identified. No inflammatory process seen. SPLEEN: No evidence for splenomegaly. No intrasplenic lesions seen. ADRENALS: No adrenal nodules identified. No evidence for thickening. KIDNEYS: No evidence for renal mass. No nephrolithiasis. No hydronephrosis. BOWEL: Appendix has a normal appearance. No evidence of bowel obstruction. No inflammatory process. Lymph nodes: No evidence for adenopathy greater than 1 cm. Abdominal aorta: Atheromatous changes seen. No evidence for aneurysm. Genital organs: No significant abnormality. Other: No significant abnormality. IMPRESSION: NO SIGNIFICANT ABNORMALITY TO ACCOUNT FOR THE PATIENT'S SYMPTOMS.
== END | disposition home or self-care (01) ==
LOC: RADCTMAIN 08:14
PROVIDERS: ATTEND Family Medicine
DX: R10.9 Unspecified abdominal pain (principal); R14.1 Gas pain
CPT/HCPCS: 74176

== ENCOUNTER 2020-10-11 10:45 | Observation (INO) | payer BC, OTHER ==
[2020-10-11] MEDS ORDERED: SODIUM CHLORIDE 0.9% 1,000 ML IV STA (11:15)
--- NOTE | 2020-10-11 11:23 | ED ---
General Adult HPI - General Chief complaint: Syncope Stated complaint: syncope Time Seen by Provider: 10/11/20 10:50 Source: EMS Mode of arrival: EMS Limitations: no limitations - History of Present Illness Initial comments: Dictation was produced using [employer] dictation software. please excuse any grammatical, word or spelling errors. Chief Complaint: 70-year-old female presents with episode of syncope and abdominal pain History of Present Illness: Patient is 70-year-old female she has history of bowel obstruction. She year in the emergency department today for chief complaint of epigastric abdominal pain and episode of syncope. She was at work when she began retching. She threw up. She does not know her emesis looked lik e. States that she was told that she passed out. Patient states that she is never passed out in the past. Patient laying of epigastric abdominal pain. She has history of bowel obstruction. She has had large amount of her large colon removed, history of cholecystectomy and appendectomy. The ROS documented in this emergency department record has been reviewed and confirmed by me. Those systems with pertinent positive or negative responses have been documented in the HPI. All other systems are other negative and/or noncontributory. PHYSICAL EXAM: General Impression: Alert and oriented x3, not in acute distress HEENT: Normocephalic atraumatic, extra-ocular movements intact, pupils equal and reactive to light bilaterally, mucous membranes moist. Cardiovascular: Heart regular rate and rhythm Chest: Able to complete full sentences, no retractions, no tachypnea Abdomen: abdomen soft, epigastric palpatory tenderness, non-distended, no organomegaly Musculoskeletal: Pulses present and equal in all extremities, no peripheral edema Motor: no focal deficits noted Neurological: CN II-XII grossly intact, no focal motor or sensory deficits noted Skin: Intact with no visualized rashes Psych: Normal affect and mood ED course: 70-year-old female presents to the emergency department for abdominal pain and episode of syncope. Vital Signs upon arrival are within acceptable limits. Patient states that her pain is mostly epigastric. Metabolic panel is unremarkable. CBC is unremarkable. Abdominal x-rays unremarkable. Patient reevaluated at bedside continues to have epigastric pain. Patient given GI cocktail with no improvement of symptoms. Actually she states her symptoms got worse. Pending troponin level. Patient having continued epigastric pain. There is concern that patient's symptoms reflect acute coronary syndrome. EKG however is unremarkable. Patient given aspirin. She'll be admitted for cardiac observation. At this point there is no clear source of patient's symptoms and will cause her syncope. Troponin level is negative. Patient be admitted for cardiac monitoring and cardiology consultation EKG interpretation: Ventricular rate 64, normal sinus rhythm,. Interval 162, care is 100, QTC 458. No UT prolongation, no QTC prolongation, no ST or T-wave changes noted. EKG compared to May 08 2019 showing no changes. Overall, this EKG is unremarkable - Related Data Home Medications Medication Instructions Recorded Confirmed Triamterene-Hctz 37.5-25Mg 1 cap PO Q48H 09/02/17 10/11/20 [Dyazide 37.5-25 Capsule] atenoloL [Tenormin] 25 mg PO DAILY 09/02/17 10/11/20 Anastrozole [Arimidex] 1 mg PO Q48H 04/16/19 10/11/20 Cholecalciferol [Vitamin D3 (25 2,000 unit PO DAILY 04/16/19 10/11/20 Mcg = 1000 Iu)] Famotidine [Pepcid] 20 mg PO BID 10/11/20 10/11/20 Allergies Allergy/AdvReac Type Severity Reaction Status Date / Time azithromycin Allergy Swelling Verified 10/11/20 12:25 codeine Allergy Rash/Hives Verified 10/11/20 12:25 epinephrine Allergy Rapid Verified 10/11/20 12:25 Heart Rate erythromycin base Allergy Rash/Hives Verified 10/11/20 12:25 Iodinated Contrast Media Allergy Dyspnea Verified 10/11/20 12:25 [Iodinated Contrast- Oral and IV Dye] Penicillins Allergy Swelling Verified 10/11/20 12:25 prednisolone Allergy Rash/Hives Verified 10/11/20 12:25 silver sulfadiazine Allergy Rash/Hives Verified 10/11/20 12:25 [From Silvadene] sulfamethoxazole Allergy Rash/Hives Verified 10/11/20 12:25 [From Bactrim] trimethoprim [From Bactrim] Allergy Rash/Hives Verified 10/11/20 12:25 Review of Systems ROS Statement: Those systems with pertinent positive or pertinent negative responses have been documented in the HPI. ROS Other: All systems not noted in ROS Statement are negative. Past Medical History Past Medical History: Cancer, Deep Vein Thrombosis (DVT), Eye Disorder, GERD/Reflux, Hypertension, Osteoarthritis (OA) Additional Past Medical History / Comment(s): Patient wears a wig. Gout, bilateral glaucoma, Menieres's. Hx irregular heartbeat/tachycardic episodes. Hx stage 0 papiloma right breast. Hx dvt/phebetis in the . ? sleep apnea, needs to have sleep study done. History of Any Multi-Drug Resistant Organisms: None Reported Past Surgical History: Appendectomy, Bowel Resection, Cholecystectomy, Tonsillectomy Additional Past Surgical History / Comment(s): Uterine suspension, ultrasound core biopsy right breast X2, right breast lumpectomy-2014. Additional Past Anesthesia/Blood Transfusion Reaction / Comment(s): Combative after general anesthesia, difficulty breathing coming out of anesthesia. Patient states does not require a lot of medication to put her out. Dizzinesss with antinausea medication. Some nausea after anesthesia. Past Psychological History: No Psychological Hx Reported Smoking Status: Never smoker Past Alcohol Use History: None Reported Past Drug Use History: None Reported - Past Family History Mother Family Medical History: Cancer, Deep Vein Thrombosis (DVT) Brother(s) Family Medical History: Cancer General Exam Limitations: no limitations Course Vital Signs 10/11/20 10/11/20 10:46 12:43 Temperature 98.1 F Pulse Rate 62 89 Respiratory 16 16 Rate Blood Pressure 144/65 125/74 O2 Sat by Pulse 99 99 Oximetry Medical Decision Making - Lab Data Result diagrams: 10/11/20 11:19 10/11/20 11:19 Lab Results 10/11/20 10/11/20 10/11/20 Range/Units 11:19 11:19 13:00 WBC 9.5 (3.8-10.6) k/uL RBC 5.00 (3.80-5.40) m/uL Hgb 15.0 (11.4-16.0) gm/dL Hct 44.8 (34.0-46.0) % MCV 89.5 (80.0-100.0) fL MCH 30.1 (25.0-35.0) pg MCHC 33.6 (31.0-37.0) g/dL RDW 12.9 (11.5-15.5) % Plt Count 218 (150-450) k/uL MPV 7.8 Neutrophils % 83 % Lymphocytes % 10 % Monocytes % 5 % Eosinophils % 1 % Basophils % 0 % Neutrophils # 7.9 H (1.3-7.7) k/uL Lymphocytes # 0.9 L (1.0-4.8) k/uL Monocytes # 0.5 (0-1.0) k/uL Eosinophils # 0.1 (0-0.7) k/uL Basophils # 0.0 (0-0.2) k/uL Sodium 139 (137-145) mmol/L Potassium 4.4 (3.5-5.1) mmol/L Chloride 107 (98-107) mmol/L Carbon Dioxide 25 (22-30) mmol/L Anion Gap 7 mmol/L BUN 18 H (7-17) mg/dL Creatinine 0.80 (0.52-1.04) mg/dL Est GFR (CKD-EPI)AfAm 88 (>60 ml/min/1.73 sqM) Est GFR (CKD-EPI)NonAf 76 (>60 ml/min/1.73 sqM) Glucose 117 H (74-99) mg/dL Calcium 9.8 (8.4-10.2) mg/dL Total Bilirubin 0.7 (0.2-1.3) mg/dL AST 31 (14-36) U/L ALT 20 (4-34) U/L Alkaline Phosphatase 102 (38-126) U/L Troponin I <0.012 (0.000-0.034) ng/mL Total Protein 6.9 (6.3-8.2) g/dL Albumin 4.2 (3.5-5.0) g/dL Lipase 79 (23-300) U/L Disposition Clinical Impression: Epigastric pain Disposition: ADMITTED IP TO THIS HOSP Condition: Fair Referrals: Lydia Milan MD [Primary Care Provider] - 1-2 days
[2020-10-11 11:33] LABS: Basophils % (A) 0 %; Eosinophils # (A) 0.1 k/uL (0-0.7); Eosinophils % (A) 1 %; HCT 44.8 % (34.0-46.0); Lymphocytes # (A) 0.9 k/uL (1.0-4.8); Lymphocytes % (A) 10 %; MCH 30.1 pg (25.0-35.0); MCHC 33.6 g/dL (31.0-37.0); MCV 89.5 fL (80.0-100.0); Mean Platelet Volume 7.8; Monocytes # (A) 0.5 k/uL (0-1.0); Monocytes % (A) 5 %; Neutrophils # (A) 7.9 k/uL (1.3-7.7); Neutrophils % (A) 83 %; Platelet Count 218 k/uL (150-450); RDW 12.9 % (11.5-15.5); WBC 9.5 k/uL (3.8-10.6)
[2020-10-11 11:47] LABS: Albumin 4.2 g/dL (3.5-5.0); Calcium 9.8 mg/dL (8.4-10.2); Potassium 4.4 mmol/L (3.5-5.1); Total Bilirubin 0.7 mg/dL (0.2-1.3); Total Protein 6.9 g/dL (6.3-8.2)
--- NOTE | 2020-10-11 12:03 | XR ---
EXAMINATION TYPE: XR abdomen acute w cxr DATE OF EXAM: 10/11/2020 COMPARISON: NONE HISTORY: Pain TECHNIQUE: Single view of the chest and 2 views of the abdomen are submitted. FINDINGS: Single view of the chest fails demonstrate evidence for acute pulmonary disease. There is no evidence for pneumoperitoneum. The bowel gas pattern is unremarkable as there is air throughout nondilated small and large bowel. No sizeable air fluid levels.No mass effects are seen. No unusual calcifications. IMPRESSION: 1. Unremarkable study.
[2020-10-11] MEDS ORDERED: MAG HYDROX/AL HYDROX/SIMETH 30 ML, HYOSCYAMINE ELIXIR 10 ML, LIDOCAINE VISCOUS 2% 10 ML PO STA ×3 (12:06)
[2020-10-11] MEDS ORDERED: ACETAMINOPHEN IV (For NPO) 1,000 MG in EMPTY BAG 1 BAG IVPB STA (13:02)
[2020-10-11] MEDS ORDERED: ASPIRIN 81 MG PO STA (13:08)
[2020-10-11] MEDS ORDERED: NALOXONE 0.4 MG/ML 1 ML VIAL IV PRN (13:10)
[2020-10-11] MEDS: SODIUM CHLORIDE 0.9% 1,000 ML IV SCH (13:16)
[2020-10-11] MEDS ORDERED: CHOLECALCIFEROL 25 MCG (1000 IU) TABLET PO SCH (15:30)
[2020-10-11] MEDS ORDERED: atenoloL 25 MG TAB PO SCH (15:30)
[2020-10-11] MEDS ORDERED: TRIAMTERENE-HCTZ 37.5-25MG 1 EACH CAP PO SCH (16:00)
[2020-10-11] MEDS ORDERED: ANASTROZOLE 1 MG TAB PO SCH ×2 (16:00→21:00)
[2020-10-11] MEDS ORDERED: FAMOTIDINE 20 MG TAB PO SCH (21:00)
[2020-10-11] MEDS ORDERED: ACETAMINOPHEN TAB 325 MG TAB PO PRN (21:21)
[2020-10-11] MEDS: PANTOPRAZOLE 40 MG TABLET PO SCH (21:22)
--- NOTE | 2020-10-12 00:24 | P.HPIM ---
History of Present Illness H&P Date: 10/11/20 Chief Complaint: Syncope Patient is a 70-year-old female with a known history of hypertension, GERD, breast cancer status post right breast lumpectomy in 2013 currently on Arimidex, osteoarthritis and previous history of DVT/phlebitis in presents to ER with complaints of epigastric abdominal pain. Patient states that she has been having epigastric abdominal pain for the past 2 months on and off sometimes lasting all day. Patient was worse at work today and felt very nauseous, retching with vomiting episodes x2. Patient was going to tell her coworker and suddenly passed out. Patient is still complains of dull pain. Patient states that she did have history of bowel obstruction. Denies any chest pain. No shortness of breath. No headache or dizziness. No fever no chills. Acute abdominal series showed unremarkable study. EKG showed normal sinus rhythm. Laboratory data showed sodium 139 potassium 4.4 chloride 107 BUN 18 and creatinine 0.8 blood sugar 117 Troponin x1 - Liver enzymes are not elevated and lipase level is 79 WBC 9.4 hemoglobin 14.0 and platelets 214 Review of Systems Constitutional: Patient denies any fever or chills . No generalized weakness or weight loss. Abdomen: Patient does have epigastric abdominal pain. Associated nausea and vomiting. No diarrhea.. Cardiovascular: Patient denies any chest pain or short of breath no palpitations. Respiratory: patient denied any cough or sputum production. No shortness of breath Neurologic: Patient denied any numbness or tingling headache. Musculoskeletal: Patient denies any complaints of joint swelling or deformity. Skin: Negative Psychiatric: Negative Endocrine: No heat or cold intolerance. No recent weight gain. Genitourinary: No dysuria or hematuria. All other 14 point ROS negative except the above Past Medical History Past Medical History: Cancer, Deep Vein Thrombosis (DVT), Eye Disorder, GERD/Reflux, Hypertension, Osteoarthritis (OA) Additional Past Medical History / Comment(s): Patient wears a wig. Gout, bilateral glaucoma, Menieres's. Hx irregular heartbeat/tachycardic episodes. Hx stage 0 papiloma right breast. Hx dvt/phebetis in the . ? sleep apnea, needs to have sleep study done. History of Any Multi-Drug Resistant Organisms: None Reported Past Surgical History: Appendectomy, Bowel Resection, Cholecystectomy, Tonsillectomy Additional Past Surgical History / Comment(s): Uterine suspension, ultrasound core biopsy right breast X2, right breast lumpectomy-2014. Additional Past Anesthesia/Blood Transfusion Reaction / Comment(s): Combative after general anesthesia, difficulty breathing coming out of anesthesia. Patient states does not require a lot of medication to put her out. Dizzinesss with antinausea medication. Some nausea after anesthesia. Past Psychological History: No Psychological Hx Reported Smoking Status: Never smoker Past Alcohol Use History: None Reported Past Drug Use History: None Reported - Past Family History Mother Family Medical History: Cancer, Deep Vein Thrombosis (DVT) Brother(s) Family Medical History: Cancer Medications and Allergies Home Medications Medication Instructions Recorded Confirmed Type Triamterene-Hctz 37.5-25Mg 1 cap PO Q48H 09/02/17 10/11/20 History [Dyazide 37.5-25 Capsule] atenoloL [Tenormin] 25 mg PO DAILY 09/02/17 10/11/20 History Anastrozole [Arimidex] 1 mg PO Q48H 04/16/19 10/11/20 History Cholecalciferol [Vitamin D3 (25 2,000 unit PO DAILY 04/16/19 10/11/20 History Mcg = 1000 Iu)] Famotidine [Pepcid] 20 mg PO BID 10/11/20 10/11/20 History Allergies Allergy/AdvReac Type Severity Reaction Status Date / Time azithromycin Allergy Swelling Verified 10/11/20 12:25 codeine Allergy Rash/Hives Verified 10/11/20 12:25 epinephrine Allergy Rapid Verified 10/11/20 12:25 Heart Rate erythromycin base Allergy Rash/Hives Verified 10/11/20 12:25 Iodinated Contrast Media Allergy Dyspnea Verified 10/11/20 12:25 [Iodinated Contrast- Oral and IV Dye] Penicillins Allergy Swelling Verified 10/11/20 12:25 prednisolone Allergy Rash/Hives Verified 10/11/20 12:25 silver sulfadiazine Allergy Rash/Hives Verified 10/11/20 12:25 [From Silvadene] sulfamethoxazole Allergy Rash/Hives Verified 10/11/20 12:25 [From Bactrim] trimethoprim [From Bactrim] Allergy Rash/Hives Verified 10/11/20 12:25 Physical Exam Vitals: Vital Signs Temp Pulse Resp BP Pulse Ox 10/11/20 20:21 57 L 18 134/64 96 10/11/20 18:23 67 16 132/73 97 10/11/20 15:45 89 16 148/73 98 10/11/20 12:43 89 16 125/74 99 10/11/20 10:46 98.1 F 62 16 144/65 99 Intake and Output 10/11/20 10/11/20 10/11/20 06:59 14:59 22:59 Other: Weight 123.377 kg PHYSICAL EXAMINATION: Patient is lying in the bed comfortably, no acute distress, awake alert and oriented.. HEENT: Normocephalic. Neck is supple. Pupils reactive. Nostrils clear. Oral cavity is moist. Neck reveals no JVD, carotid bruits, or thyromegaly. CHEST EXAMINATION: Trachea is central. Symmetrical expansion. Lung anderson clear to auscultation and percussion. CARDIAC: Normal S1, S2 with no gallops. No murmurs ABDOMEN: Soft. Bowel sounds normal. No organomegaly. No abdominal bruits. Extremities: reveal no edema. No clubbing or cyanosis Neurologically awake, alert, oriented x3 with well-coordinated movements. No focal deficits noted Skin: No rash or skin lesions. Psychiatric: Coperative. Nonsuicidal Musculoskeletal: No joint swelling or deformity. Normal range of motion. Results CBC & Chem 7: 10/11/20 11:19 10/11/20 11:19 Labs: Abnormal Lab Results - Last 24 Hours (Table) 10/11/20 10/11/20 Range/Units 11:19 11:19 Neutrophils # 7.9 H (1.3-7.7) k/uL Lymphocytes # 0.9 L (1.0-4.8) k/uL BUN 18 H (7-17) mg/dL Glucose 117 H (74-99) mg/dL Thrombosis Risk Factor Assmnt - DVT/VTE Prophylaxis DVT/VTE Prophylaxis: Pharmacologic Prophylaxis ordered Assessment and Plan Assessment: Atypical chest pain. Patient also epigastric pain Acute syncopal episode likely vasovagal. Patient was having severe retching and nausea prior to episode. Hypertension GERD Breast cancer status post right breast lumpectomy. Currently on anastrozole History of gout Bilateral glaucoma History of DVT 7 years ago Obesity with BMI 39.0 Osteoarthritis DVT prophylaxis Heparin subcu Plan: Patient will be continued gentle IV hydration and symptomatic management for nausea and vomiting. Continue telemetry monitoring. Serial EKG and troponin x3. We will change Pepcid to Protonix twice daily and monitor closely. Cardiology was consulted for evaluation. Continue with home medications.
[2020-10-12] MEDS ORDERED: HEPARIN SODIUM,PORCINE/PF 5,000 UNIT/0.5 ML SYRINGE SQ SCH (08:00)
[2020-10-12] MEDS: PANTOPRAZOLE 40 MG TABLET PO SCH (08:06)
--- NOTE | 2020-10-12 10:05 | P.CRDCN ---
History of Present Illness Consult date: 10/12/20 History of present illness: HISTORY OF PRESENT ILLNESS: This is a 70-year-old female with a past medical history significant for hypertension, breast cancer with radiation and on current oral chemotherapy, bowel obstruction previous bowel resection, and Mnire's disease. Patient does not follow with a call center professional. We have been asked to see the patient in consultation for chest pain. Patient examined at the bedside. Patient states she has been having abdominal pain on and off for the past 2 months. She also reports dealing with constipation intermittently. She states she usually has abdominal pain within a day or 2 it resolves. She states yesterday morning she woke up with abdominal pain but went to work anyways. She states that while at work she began to have worsening abdominal pain and felt as though she was going to throw up. She states she told one of her coworkers that she did not feel well. She states that she was sitting in a chair and had an episode of vomiting. After that, she apparently passed out. The next thing she remembers was EMS standing over her. The patient denied feeling dizzy or lightheaded. She denied having any chest pain at all yesterday or today. She denies shortness of breath. She states her abdominal pain has improved this morning. EKG reveals sinus mechanism with no signs of acute ischemia Abdominal x-ray unremarkable study Laboratory data: WBC 9.5. Hemoglobin 13.0. Platelet count 218. Sodium 139. Potassium 4.4. BUN 18. Creatinine 0.80. Troponin negative 1. Current home cardiac medications include atenolol 25 mg daily and Dyazide one tablet every 48 hours REVIEW OF SYSTEMS: At the time of my exam: CONSTITUTIONAL: Denies fever or chills. HEENT: Denies blurred vision, vision changes, or eye pain. Denies hemoptysis CARDIOVASCULAR: Denies chest pain. Denies orthopnea. Denies PND. Denies palpitations RESPIRATORY: Denies shortness of breath. GASTROINTESTINAL: Denies abdominal pain. Denies nausea or vomiting. HEMATOLOGIC: Denies bleeding disorders. GENITOURINARY: Denies any blood in urine. SKIN: Denies pruitis. Denies rash. PHYSICAL EXAM: VITAL SIGNS: Reviewed. GENERAL: Well-developed in no acute distress. HEENT: Head is normocephalic. Pupils are equal, round. Sclerae anicteric. Mucous membranes of the mouth are moist. Neck supple. No JVD or thyromegaly LUNGS: Respirations even and unlabored. Lungs essentially clear to auscultation bilaterally. HEART: Regular rate and rhythm. S1 and S2 heard. ABDOMEN: Soft. Nondistended. Nontender. EXTREMITIES: Normal range of motion. No clubbing or cyanosis. Peripheral pulses intact. No lower extremity edema NEUROLOGIC: Awake and alert. Oriented x 3. ASSESSMENT: Chest pain, ruled out, patient denies ever having chest pain Abdominal pain Nausea and vomiting Syncope, suspect secondary to vomiting episode Hypertension Breast cancer History of bowel obstruction with bowel resection PLAN: Continue telemetry monitoring Obtain 2D echo to assess cardiac structure and function Resume home cardiac medications Obtain additional troponin levels Further recommendations pending patient course Nurse practitioner note has been reviewed by physician. Signing provider agrees with the documented findings, assessment, and plan of care. Past Medical History Past Medical History: Cancer, Deep Vein Thrombosis (DVT), Eye Disorder, GERD/Reflux, Hypertension, Osteoarthritis (OA) Additional Past Medical History / Comment(s): Patient wears a wig. Gout, bilateral glaucoma, Menieres's. Hx irregular heartbeat/tachycardic episodes. Hx stage 0 papiloma right breast. Hx dvt/phebetis in the . ? sleep apnea, needs to have sleep study done. History of Any Multi-Drug Resistant Organisms: None Reported Past Surgical History: Appendectomy, Bowel Resection, Cholecystectomy, Tons illectomy Additional Past Surgical History / Comment(s): Uterine suspension, ultrasound core biopsy right breast X2, right breast lumpectomy-2013. Additional Past Anesthesia/Blood Transfusion Reaction / Comment(s): Combative after general anesthesia, difficulty breathing coming out of anesthesia. Patient states does not require a lot of medication to put her out. Dizzinesss with antinausea medication. Some nausea after anesthesia. Past Psychological History: No Psychological Hx Reported Smoking Status: Never smoker Past Alcohol Use History: None Reported Past Drug Use History: None Reported - Past Family History Mother Family Medical History: Cancer, Deep Vein Thrombosis (DVT) Brother(s) Family Medical History: Cancer Medications and Allergies Home Medications Medication Instructions Recorded Confirmed Type Triamterene-Hctz 37.5-25Mg 1 cap PO Q48H 09/02/17 10/11/20 History [Dyazide 37.5-25 Capsule] atenoloL [Tenormin] 25 mg PO DAILY 09/02/17 10/11/20 History Anastrozole [Arimidex] 1 mg PO Q48H 04/16/19 10/11/20 History Cholecalciferol [Vitamin D3 (25 2,000 unit PO DAILY 04/16/19 10/11/20 History Mcg = 1000 Iu)] Famotidine [Pepcid] 20 mg PO BID 10/11/20 10/11/20 History Allergies Allergy/AdvReac Type Severity Reaction Status Date / Time azithromycin Allergy Swelling Verified 10/11/20 12:25 codeine Allergy Rash/Hives Verified 10/11/20 12:25 epinephrine Allergy Rapid Verified 10/11/20 12:25 Heart Rate erythromycin base Allergy Rash/Hives Verified 10/11/20 12:25 Iodinated Contrast Media Allergy Dyspnea Verified 10/11/20 12:25 [Iodinated Contrast- Oral and IV Dye] Penicillins Allergy Swelling Verified 10/11/20 12:25 prednisolone Allergy Rash/Hives Verified 10/11/20 12:25 silver sulfadiazine Allergy Rash/Hives Verified 10/11/20 12:25 [From Silvadene] sulfamethoxazole Allergy Rash/Hives Verified 10/11/20 12:25 [From Bactrim] trimethoprim [From Bactrim] Allergy Rash/Hives Verified 10/11/20 12:25 Physical Exam Vitals: Vital Signs Temp Pulse Pulse Resp BP BP Pulse Ox 10/12/20 01:38 98.2 F 69 16 97 10/12/20 01:02 16 10/11/20 21:11 99.2 F 69 16 135/76 95 10/11/20 20:21 57 L 18 134/64 96 10/11/20 20:00 16 10/11/20 18:23 67 16 132/73 97 10/11/20 15:45 89 16 148/73 98 10/11/20 12:43 89 16 125/74 99 10/11/20 10:46 98.1 F 62 16 144/65 99 Intake and Output 10/11/20 10/12/20 10/12/20 22:59 06:59 14:59 Other: Voiding Method Toilet Toilet # Voids 1 2 Weight 123.377 kg Results 10/11/20 11:19 10/11/20 11:19 Cardiac Enzymes 10/11/20 10/11/20 Range/Units 11:19 13:00 AST 31 (14-36) U/L Troponin I <0.012 (0.000-0.034) ng/mL CBC 10/11/20 Range/Units 11:19 WBC 9.5 (3.8-10.6) k/uL RBC 5.00 (3.80-5.40) m/uL Hgb 15.0 (11.4-16.0) gm/dL Hct 44.8 (34.0-46.0) % Plt Count 218 (150-450) k/uL Comprehensive Metabolic Panel 10/11/20 Range/Units 11:19 Sodium 139 (137-145) mmol/L Potassium 4.4 (3.5-5.1) mmol/L Chloride 107 (98-107) mmol/L Carbon Dioxide 25 (22-30) mmol/L BUN 18 H (7-17) mg/dL Creatinine 0.80 (0.52-1.04) mg/dL Glucose 117 H (74-99) mg/dL Calcium 9.8 (8.4-10.2) mg/dL AST 31 (14-36) U/L ALT 20 (4-34) U/L Alkaline Phosphatase 102 (38-126) U/L Total Protein 6.9 (6.3-8.2) g/dL Albumin 4.2 (3.5-5.0) g/dL Current Medications Generic Name Dose Route Start Last Admin Trade Name Freq PRN Reason Stop Dose Admin Acetaminophen 650 mg 10/11/20 21:21 Acetaminophen Tab 325 Mg Tab PO Q6HR PRN Fever and/ or Mild Pain Anastrozole 1 mg 10/11/20 21:00 10/11/20 21:22 Anastrozole 1 Mg Tab PO 1 mg Q48H ALFREDO Administration Atenolol 25 mg 10/12/20 13:00 Atenolol 25 Mg Tab PO DAILY@1300 ALFREDO Cholecalciferol 50 mcg 10/12/20 13:00 Cholecalciferol 25 Mcg (1000 Iu) Tablet PO DAILY@1300 ALFREDO Heparin Sodium (Porcine) 5,000 unit 10/12/20 08:00 10/12/20 07:31 Heparin Sodium,Porcine/Pf 5,000 Unit/0.5 Ml Syringe SQ 5,000 unit Q8HR ALFREDO Administration Sodium Chloride 1,000 mls @ 20 mls/hr 10/11/20 13:15 10/11/20 13:16 Saline 0.9% IV Not Given .Q24H ALFREDO Naloxone HCl 0.2 mg 10/11/20 13:10 Naloxone 0.4 Mg/Ml 1 Ml Vial IV Q2M PRN Opioid Reversal Pantoprazole Sodium 40 mg 10/12/20 13:00 Pantoprazole 40 Mg Tablet PO BID@0100,1300 ALFREDO Triamterene/Hydrochlorothiazide 1 each 10/11/20 16:00 10/11/20 15:44 Triamterene-Hctz 37.5-25mg 1 Each Cap PO 1 each Q48H ALFREDO Administration Intake and Output 10/11/20 10/12/20 10/12/20 22:59 06:59 14:59 Other: Voiding Method Toilet Toilet # Voids 1 2 Weight 123.377 kg 10/11/20 11:19 10/11/20 11:19
--- NOTE | 2020-10-12 10:50 | ECHOF ---
Referral Reason:LV function MEASUREMENTS -------- HEIGHT: 177.8 cm WEIGHT: 123.4 kg BP: 128/72 RVIDd: 3.4 cm (< 3.3) IVSd: 1.2 cm (0.6 - 1.1) LVIDd: 4.2 cm (3.9 - 5.3) LVPWd: 1.1 cm (0.6 - 1.1) IVSs: 1.6 cm LVIDs: 2.8 cm LVPWs: 1.8 cm LAESV Index (A-L): 20.84 ml/m Ao Diam: 2.6 cm (2.0 - 3.7) AV Cusp: 1.7 cm (1.5 - 2.6) LA Diam: 2.9 cm (2.7 - 3.8) MV EXCURSION: 15.676 mm (> 18.000) MV EF SLOPE: 69 mm/s (70 - 150) EPSS: 0.5 cm MV E Shahram: 0.67 m/s MV DecT: 263 ms MV A Shahram: 0.93 m/s MV E/A Ratio: 0.72 RAP: 5.00 mmHg RVSP: 27.73 mmHg FINDINGS -------- Sinus rhythm. This was a technically adequate study. The left ventricular size is normal. There is mild concentric left ventricular hypertrophy. Overa ll left ventricular systolic function is normal with, an EF between 55 - 60 %. The right ventricle is mildly enlarged. Normal LA size by volume 22+/-6 ml/m2. The right atrial size is normal. Interatrial and interventricular septum intact. The aortic valve is trileaflet and appears structurally normal. There is no evidence of aortic regu rgitation. There is no evidence of aortic stenosis. No mitral regurgitation. Mild tricuspid regurgitation present. There is no evidence of pulmonary hypertension. The right v entricular systolic pressure, as measured by Doppler, is 27.73mmHg. There is no pulmonic regurgitation present. The aortic root size is normal. IVC Not well visulized. There is no pericardial effusion. CONCLUSIONS -------- 1. The left ventricular size is normal. 2. There is mild concentric left ventricular hypertrophy. 3. Overall left ventricular systolic function is normal with, an EF between 55 - 60 %. 4. The right ventricle is mildly enlarged. 5. Mild tricuspid regurgitation present. OPERATIONS MGR: Danika Grover RDCS
[2020-10-12] MEDS ORDERED: PANTOPRAZOLE 40 MG TABLET PO SCH (13:00)
[2020-10-12] MEDS ORDERED: atenoloL 25 MG TAB PO SCH (13:00)
[2020-10-12] MEDS ORDERED: CHOLECALCIFEROL 25 MCG (1000 IU) TABLET PO SCH (13:00)
[2020-10-12] MEDS: SODIUM CHLORIDE 0.9% 1,000 ML IV SCH (13:17)
[2020-10-12 14:45] VITALS: BP 114/68; PULSE 75; RESP 17; TEMP 98
[2020-10-12 20:00] LABS: African American GFR (CKD) 76.1 (60.0-200.0); Anion Gap 11.6 mmol/L (4.00-12.00); BUN/Creat Ratio 17.78 Ratio (12.00-20.00); Calcium 9.3 mg/dL (8.7-10.3); Carbon Dioxide 25.4 mmol/L (21.6-31.8); Non-African American GFR(CKD) 65.7 (60.0-200.0); Potassium 4.2 mmol/L (3.5-5.5)
--- NOTE | 2020-10-15 01:04 | P.DS ---
Providers Date of admission: 10/11/20 13:10 Expected date of discharge: 10/12/20 Attending physician: Tila Walters Primary care physician: Lydia Milan Hospital Course: Final Diagnosis Atypical chest pain. Patient also epigastric pain Acute syncopal episode likely vasovagal. Patient was having severe retching and nausea prior to episode. Hypertension GERD Breast cancer status post right breast lumpectomy. Currently on anastrozole History of gout Bilateral glaucoma History of DVT 7 years ago Obesity with BMI 39.0 Osteoarthritis DVT prophylaxis Discharge disposition Patient is being discharged in a stable condition with guarded prognosis to home. Patient will follow-up with Dr. Lydia Milan in the outpatient setting upon discharge. Patient is to also follow up with cardiology outpatient. Patient to continue on protonix twice daily. Total time taken is greater than 35 minutes. Hospital course Patient is a 70-year-old female with a known history of hypertension, GERD, breast cancer status post right breast lumpectomy in 2013 currently on Arimidex, osteoarthritis and previous history of DVT/phlebitis in presents to ER with complaints of epigastric abdominal pain. Patient states that she has been having epigastric abdominal pain for the past 2 months on and off sometimes lasting all day. Patient was worse at work today and felt very nauseous, retching with vomiting episodes x2. Patient was going to tell her coworker and suddenly passed out. Patient is still complains of dull pain. Patient states that she did have history of bowel obstruction. Denies any chest pain. No shortness of breath. No headache or dizziness. No fever no chills. Acute abdominal series showed unremarkable study. EKG showed normal sinus rhythm. Laboratory data showed sodium 139 potassium 4.4 chloride 107 BUN 18 and creatinine 0.8 blood sugar 117 Troponin x1 - Liver enzymes are not elevated and lipase level is 79 WBC 9.4 hemoglobin 14.0 and platelets 214 10/12/2020 Patient is seen in follow-up this morning and was evaluated by cardiology and underwent 2D echo showing LV systolic function normal with an EF of 55-60% . Patient will need outpatient follow up with cardiology and her oncologist. Patient will be started on Protonix 40mg BID and pepcid discontinued. Currently no reports of chest pain, shortness of breath, or palpitations. Patient is afebrile. No reports of nausea or vomiting and patient is tolerating diet. Patient will be discharged home today. On exam vital signs are stable. Cardio S1, S2 are muffled. Respiratory system shows diminished breath sounds at the bases with no wheezing or rhonchi noted. Abdomen is soft and nontender. Nervous system shows no focal deficit. Please refer to medication reconciliation sheet for a list of medications. Patient Condition at Discharge: Stable Plan - Discharge Summary Discharge Rx Participant: No New Discharge Prescriptions: New Pantoprazole Sodium [Protonix] 40 mg PO BID #60 tablet. Acetaminophen Tab [Tylenol] 650 mg PO Q6HR PRN tab PRN Reason: Fever and/ or Mild Pain Continue Triamterene-Hctz 37.5-25Mg [Dyazide 37.5-25 Capsule] 1 cap PO Q48H atenoloL [Tenormin] 25 mg PO DAILY Cholecalciferol [Vitamin D3 (25 Mcg = 1000 Iu)] 2,000 unit PO DAILY Anastrozole [Arimidex] 1 mg PO Q48H Discontinued Famotidine [Pepcid] 20 mg PO BID Discharge Medication List Triamterene-Hctz 37.5-25Mg [Dyazide 37.5-25 Capsule] 1 cap PO Q48H 09/02/17 [Hi story] atenoloL [Tenormin] 25 mg PO DAILY 09/02/17 [History] Anastrozole [Arimidex] 1 mg PO Q48H 04/16/19 [History] Cholecalciferol [Vitamin D3 (25 Mcg = 1000 Iu)] 2,000 unit PO DAILY 04/16/19 [History] Acetaminophen Tab [Tylenol] 650 mg PO Q6HR PRN tab 10/12/20 [Rx] Pantoprazole Sodium [Protonix] 40 mg PO BID #60 tablet. 10/12/20 [Rx] Follow up Appointment(s)/Referral(s): Lee Mace MD [STAFF PHYSICIAN] - 3 Weeks Lydia Milan MD [Primary Care Provider] - 1-2 days Patient Instructions/Handouts: Epigastric Pain (GEN) Activity/Diet/Wound Care/Special Instructions: Activity Limited until follow-up Follow-up with primary care provider upon discharge Follow-up with oncology outpatient Follow-up cardiology outpatient as needed Continue current diet Continue with Protonix twice daily If experiencing any further symptoms please call 911 or report to your nearest emergency room Discharge Disposition: HOME SELF-CARE
== END 2020-10-12 16:42 | disposition home or self-care (01) ==
LOC: EC 10:45 → 1SOBS 13:10 → 6NMEDSUR 16:28
PROVIDERS: ADMIT Internal Medicine; ATTEND Internal Medicine
DX: R55 Syncope and collapse (principal); R07.89 Other chest pain; R11.2 Nausea with vomiting, unspecified; R10.13 Epigastric pain; I10 Essential (primary) hypertension; E66.9 Obesity, unspecified; K21.9 Gastro-esophageal reflux disease without esophagitis; Z68.39 Body mass index [BMI] 39.0-39.9, adult; Z79.899 Other long term (current) drug therapy; Z85.3 Personal history of malignant neoplasm of breast; Z86.718 Personal history of other venous thrombosis and embolism; Z86.72 Personal history of thrombophlebitis; Z90.49 Acquired absence of other specified parts of digestive tract; M19.90 Unspecified osteoarthritis, unspecified site
CPT/HCPCS: 96361 ×2; 96372; 96365; 99285; 36415; 93005; 93306; 80053; 80048; 83690; 84484 ×2; 85025; 74022; G0378 ×2; S0170; J0131; J1644

== ENCOUNTER 2020-11-21 11:08 | Day surgery (SDC) | payer BC, OTHER ==
[2020-11-16 15:40] VITALS: BMI 47.5
[~2020-11-21 11:08] MED LIST changes: -HEPARIN SODIUM,PORCINE 5,000 UNIT/ML 1 ML VIAL SQ ONE; +LIDOCAINE 1% (10MG/ML) FOR IV START INTRADERMA PRN; -LIDOCAINE 1% 20 ML VIAL (10MG/ML) FOR IV START INTRADERMA PRN; -ONDANSETRON 4 MG/2 ML VIAL IVP ONE; -Pre Op ABX Message 1 EACH MISC MISCELLANE ONE; -fentaNYL (PF) 50 MCG/ML 2 ML AMP IVP PRN
[2020-11-21 11:41] VITALS: TEMP 97.5
[2020-11-21] MEDS ORDERED: PROPOFOL 10 MG/ML 20 ML VIAL IV ONE (12:10)
--- NOTE | 2020-11-21 12:22 | P.GSHP ---
History of Present Illness H&P Date: 11/21/20 Chief Complaint: Epigastric pain Patient has been having left upper quadrant pain recently. Had an episode of syncope after one of these episodes. CAT scan abdomen and pelvis was obtained which showed no definite abnormalities. Has had a cardiac workup as well. Past Medical History Past Medical History: Cancer, Deep Vein Thrombosis (DVT), Eye Disorder, GERD/Reflux, Hypertension, Osteoarthritis (OA) Additional Past Medical History / Comment(s): Bilateral glaucoma, Menieres's. Hx irregular heartbeat/tachycardic episodes. Hx stage 0 papiloma right breast. Hx dvt/phebetis in the . Patient wears a wig. History of Any Multi-Drug Resistant Organisms: None Reported Past Surgical History: Appendectomy, Bowel Resection, Cholecystectomy, Tonsillectomy Additional Past Surgical History / Comment(s): Uterine suspension, ultrasound core biopsy right breast X2, right breast lumpectomy-2013 with radiation and chemo after. Past Anesthesia/Blood Transfusion Reactions: Postoperative Nausea & Vomiting (PONV) Additional Past Anesthesia/Blood Transfusion Reaction / Comment(s): Combative after general anesthesia, difficulty breathing coming out of anesthesia. Patient states does not require a lot of medication to put her out. Nausea after anesthesia. Smoking Status: Never smoker - Past Family History Mother Family Medical History: Cancer, Deep Vein Thrombosis (DVT) Brother(s) Family Medical History: Cancer Medications and Allergies Home Medications Medication Instructions Recorded Confirmed Type Triamterene-Hctz 37.5-25Mg 1 cap PO Q48H 09/02/17 11/16/20 History [Dyazide 37.5-25 Capsule] atenoloL [Tenormin] 25 mg PO 1200 09/02/17 11/16/20 History Anastrozole [Arimidex] 1 mg PO Q48H 04/16/19 11/16/20 History Cholecalciferol [Vitamin D3 (25 2,000 unit PO DAILY 04/16/19 11/16/20 History Mcg = 1000 Iu)] Acetaminophen Tab [Tylenol] 650 mg PO Q6HR PRN tab 10/12/20 11/16/20 Rx Famotidine [Pepcid] 20 mg PO BID 11/16/20 11/16/20 History Allergies Allergy/AdvReac Type Severity Reaction Status Date / Time azithromycin Allergy Swelling Verified 11/16/20 15:23 codeine Allergy Rash/Hives Verified 11/16/20 15:23 epinephrine Allergy Rapid Verified 11/16/20 15:23 Heart Rate erythromycin base Allergy Rash/Hives Verified 11/16/20 15:23 Iodinated Contrast Media Allergy Dyspnea Verified 11/16/20 15:23 [Iodinated Contrast- Oral and IV Dye] Penicillins Allergy Swelling Verified 11/16/20 15:23 prednisolone Allergy Rash/Hives Verified 11/16/20 15:23 silver sulfadiazine Allergy Rash/Hives Verified 11/16/20 15:23 [From Silvadene] sulfamethoxazole Allergy Rash/Hives Verified 11/16/20 15:23 [From Bactrim] trimethoprim [From Bactrim] Allergy Rash/Hives Verified 11/16/20 15:23 Surgical - Exam Vital Signs Temp Pulse Resp BP Pulse Ox 97.5 F L 78 15 131/68 97 11/21/20 11:38 11/21/20 11:38 11/21/20 11:38 11/21/20 11:38 11/21/20 11:38 Physical exam: General: Well-developed, well-nourished HEENT: Normocephalic, sclerae nonicteric Abdomen: Nontender, nondistended Extremities: No edema Neuro: Alert and oriented Assessment and Plan (1) Epigastric pain Narrative/Plan: Will proceed with upper endoscopy. Current Visit: No Status: Acute Code(s): R10.13 - EPIGASTRIC PAIN SNOMED Code(s): 28351755
--- NOTE | 2020-11-21 12:24 | P.PCN ---
Date of Procedure: 11/21/20 Procedure(s) Performed: Preoperative Dx: Epigastric pain Postoperative Dx: Gastritis, gastric polyps, small hiatal hernia Procedure: EGD with Bx Anesthesia: Sedation Endoscopist: Dr. Milan Specimens: Antrum, gastric polyp Endoscopic Procedure: The patient was on the endoscopy table in the left decubitus position. The Olympus gastroscope was inserted into the oropharynx and passed under direct visualization to the region of the third portion of the duodenum. From that point the scope was slowly withdrawn inspecting all surfaces carefully. There were no neoplastic inflammatory or polypoid lesions throughout the duodenum. The pylorus was widely patent. The stomach was carefully inspected. There was mild gastritis present. A biopsy of the antrum took place to rule out H. pylori. The patient had multiple small polyps in the stomach. These were all less than 7-8 mm in size. The largest polyp was biopsied. Retroflexion revealed a small sliding hiatal hernia. The GE junction was present 1 cm above the diaphragmatic hiatus. The esophagus was then carefully examined. There were no neoplastic inflammatory or polypoid lesions throughout the visualized esophagus. The patient was then taken to the recovery room in stable condition per anesthesia guidelines. Recommendations: Await biopsy results. No definite source of the patient's recent pain identified at this time.
[2020-11-21 12:32] VITALS: BP 128/80; RESP 18
[2020-11-21 12:49] VITALS: PULSE 71
== END 2020-11-21 13:24 | disposition home or self-care (01) ==
LOC: ORWHC2ENDO 11:08
PROVIDERS: ATTEND Surgery
DX: K29.50 Unspecified chronic gastritis without bleeding (principal); K31.7 Polyp of stomach and duodenum; I10 Essential (primary) hypertension; H40.9 Unspecified glaucoma; E66.01 Morbid (severe) obesity due to excess calories; K21.9 Gastro-esophageal reflux disease without esophagitis; K44.9 Diaphragmatic hernia without obstruction or gangrene; M19.90 Unspecified osteoarthritis, unspecified site; Z85.3 Personal history of malignant neoplasm of breast; Z86.718 Personal history of other venous thrombosis and embolism; Z88.0 Allergy status to penicillin; Z88.1 Allergy status to other antibiotic agents; Z88.2 Allergy status to sulfonamides; Z91.041 Radiographic dye allergy status; Z90.49 Acquired absence of other specified parts of digestive tract; Z92.3 Personal history of irradiation
CPT/HCPCS: 43239; 88305; J2704

== ENCOUNTER → 2020-11-23 | Outpatient (CLI) | payer BC ==
--- NOTE | 2020-11-24 07:40 | US ---
EXAMINATION TYPE: US carotid duplex BILAT DATE OF EXAM: 11/23/2020 COMPARISON: NONE CLINICAL HISTORY: I10 essential hypertension. EXAM MEASUREMENTS: RIGHT: Peak Systolic Velocity (PSV) cm/sec ----- Right CCA: 73.8 ----- Right ICA: 48.8 ----- Right ECA: 73.8 ICA/CCA ratio: 0.7 RIGHT: End Diastole cm/sec ----- Right CCA: 20.6 ----- Right ICA: 15.4 ----- Right ECA: 16.2 LEFT: Peak Systolic Velocity (PSV) cm/sec ----- Left CCA: 58.1 ----- Left ICA: 82.3 ----- Left ECA: 53.3 ICA/CCA ratio: 1.4 LEFT: End Diastole cm/sec ----- Left CCA: 16.8 ----- Left ICA: 30.7 ----- Left ECA: 12.7 VERTEBRALS (direction of flow): Right Vertebral: Antegrade Left Vertebral: Antegrade Rhythm: Normal Patient of large body habitus with large thick neck, only able to see ICA in proximal views. No obvio us stenosis. IMPRESSION: No evidence for hemodynamically significant stenosis. NASCET criteria was used in interpretation of this exam? Criteria for Assigning % of Stenosis / Diameter reduction (Estimation based on the indirect measurements of the internal carotid artery velocities (ICA PSV). 1. Normal (no stenosis)=ICA PSV < 125 cm/s: ratio < 2.0: ICA EDV<40 cm/s. 2. Less than 50% stenosis=ICA PSV < 125 cm/s: ratio < 2.0: ICA EDV<40 cm/s. 3. 50 to 69% stenosis=ICA PSV of 125 to 230 cm/s: ration 2.0 ? 4.0: ICA EDV 40-100 cm/s. 4. Greater than 70% stenosis to near occlusion= ICA PSV > 230 cm/s: ratio > 4.0: ICA EDV > 100 cm/s. 5. Near occlusion= ICA PSV velocities may be low or undetectable: variable ratio and ICA EDV. 6. Total occlusion=unable to detect flow.
== END | disposition home or self-care (01) ==
LOC: RADUSWWP 16:00
PROVIDERS: ATTEND Family Medicine
DX: I10 Essential (primary) hypertension (principal)
CPT/HCPCS: 93880

== ENCOUNTER → 2021-03-28 | Outpatient (CLI) | payer BC, OTHER ==
--- NOTE | 2021-03-29 12:48 | MM ---
Reason for exam: follow-up at short interval from prior study. Last mammogram was performed 6 months ago. History: Patient is postmenopausal and has history of breast cancer at age 68. Family history of breast cancer in maternal grandmother. Malignant MG pre op needle loc RT of the right breast, September 28, 2018. Lumpectomy of the right breast, September 28, 2018. Malignant MG stereo VAD BX RT of the right breast, September 08, 2018. Benign excisional biopsy of the left breast, 1997. Taking antineoplastic for 2 years beginning at age 68. Physical Findings: Nurse did not find any significant physical abnormalities on exam. MG 3D Diag Mammo W/Cad RT CC and MLO view(s) were taken of the right breast. Prior study comparison: September 21, 2020, bilateral MG 3d diag mammo w/cad BRIANA. January 27, 2020, bilateral MG 3d diag mammo w/cad BRIANA. There are scattered fibroglandular densities. Finding #1: Architectural distortion in the upper outer quadrant of the right breast. Finding #2: There are typically benign dystrophic, round calcifications in the right breast. There is no discrete abnormality. These results were verbally communicated with the patient and result sheet given to the patient on 03/28/21. ASSESSMENT: Benign, BI-RAD 2 RECOMMENDATION: Follow-up diagnostic mammogram of both breasts in 6 months. Back on schedule.
== END | disposition home or self-care (01) ==
LOC: RADMAMWWP 07:45
PROVIDERS: ATTEND Surgery
DX: R92.8 Other abnormal and inconclusive findings on diagnostic imaging of breast (principal); Z78.0 Asymptomatic menopausal state; Z85.3 Personal history of malignant neoplasm of breast; Z80.3 Family history of malignant neoplasm of breast
CPT/HCPCS: 77061; 77065

== ENCOUNTER → 2021-05-18 | Outpatient (CLI) | payer BC, OTHER ==
[2021-05-18 18:52] LABS: Basophils # (A) 0.03 X 10*3/uL (0.00-0.10); Basophils % (A) 0.5 %; Eosinophils % (A) 1.7 %; Immature Grans, Automated 0.5 %; Lymphocytes # (A) 0.98 X 10*3/uL (0.90-5.00); Lymphocytes % (A) 16.8 %; MCH 28.7 pg (27.0-32.0); MCHC 31.9 g/dL (32.0-37.0); Mean Platelet Volume 9.9 fL (9.5-12.2); Monocytes # (A) 0.49 X 10*3/uL (0.20-1.00); Monocytes % (A) 8.4 %; NRBC Per 100 WBC 0 /100 WBCS (0.0-0.0); Neutrophils # (A) 4.21 X 10*3/uL (1.80-7.70); Neutrophils % (A) 72.1 %; Platelet Count 248 X 10*3/uL (140-440); RBC 5.22 X 10*6/uL (4.10-5.20); RDW 12.5 % (11.5-14.5); WBC 5.84 X 10*3/uL (4.50-10.00)
[2021-05-18 19:28] LABS: African American GFR (CKD) 78.6 (60.0-200.0); Albumin 4.3 g/dL (3.8-4.9); Albumin/Globulin Ratio 1.81 (1.60-3.17); BUN/Creat Ratio 18.46 Ratio (12.00-20.00); Blood Urea Nitrogen 16.1 mg/dL (9.0-27.0); Calcium 9.3 mg/dL (8.7-10.3); Carbon Dioxide 26.6 mmol/L (20.0-27.5); Globulin 2.4 g/dL (1.6-3.3); Non-African American GFR(CKD) 67.8 (60.0-200.0); Potassium 4.1 mmol/L (3.5-5.5); Total Bilirubin 0.3 mg/dL (0.30-1.20); Total Protein 6.6 g/dL (6.2-8.2)
[2021-05-19 08:45] LABS: Cancer Antigen 153 25.1 U/mL (0.0-32.3)
== END | disposition home or self-care (01) ==
LOC: LABWHC1 12:24
PROVIDERS: ATTEND Internal Medicine Hematology & Oncology
DX: C50.411 Malignant neoplasm of upper-outer quadrant of right female breast (principal)
CPT/HCPCS: 36415; 80053; 85025; 86300

== ENCOUNTER → 2021-09-19 | Outpatient (CLI) | payer BC, OTHER ==
[2021-09-19 14:22] LABS: Basophils # (A) 0.02 X 10*3/uL (0.00-0.10); Basophils % (A) 0.4 %; Eosinophils % (A) 1.9 %; HCT 46.8 % (37.2-46.3); HGB 14.7 g/dL (12.0-15.0); Immature Grans, Automated 0.4 %; Lymphocytes # (A) 1.09 X 10*3/uL (0.90-5.00); Lymphocytes % (A) 20.8 %; MCH 28.1 pg (27.0-32.0); MCHC 31.4 g/dL (32.0-37.0); MCV 89.5 fL (80.0-97.0); Mean Platelet Volume 10.3 fL (9.5-12.2); Monocytes # (A) 0.59 X 10*3/uL (0.20-1.00); Monocytes % (A) 11.3 %; NRBC Per 100 WBC 0 /100 WBCS (0.0-0.0); Neutrophils # (A) 3.42 X 10*3/uL (1.80-7.70); Neutrophils % (A) 65.2 %; Platelet Count 212 X 10*3/uL (140-440); RBC 5.23 X 10*6/uL (4.10-5.20); WBC 5.24 X 10*3/uL (4.50-10.00)
[2021-09-19 14:44] LABS: African American GFR (CKD) 87.2 (60.0-200.0); Albumin 4.2 g/dL (3.8-4.9); Albumin/Globulin Ratio 1.85 (1.60-3.17); BUN/Creat Ratio 16.63 Ratio (12.00-20.00); Blood Urea Nitrogen 13.3 mg/dL (9.0-27.0); Calcium 9.2 mg/dL (8.7-10.3); Carbon Dioxide 25.4 mmol/L (20.0-27.5); Globulin 2.3 g/dL (1.6-3.3); Non-African American GFR(CKD) 75.2 (60.0-200.0); Total Bilirubin 0.3 mg/dL (0.30-1.20); Total Protein 6.5 g/dL (6.2-8.2)
[2021-09-19 22:13] LABS: Cancer Antigen 153 23.2 U/mL (0.0-32.3)
== END | disposition home or self-care (01) ==
LOC: LABWHC1 08:14
PROVIDERS: ATTEND Internal Medicine Hematology & Oncology
DX: C50.411 Malignant neoplasm of upper-outer quadrant of right female breast (principal)
CPT/HCPCS: 36415; 80053; 85025; 86300

== ENCOUNTER → 2021-09-27 | Outpatient (CLI) | payer BC, OTHER ==
--- NOTE | 2021-09-27 11:06 | MM ---
Reason for Exam: Hx of breast cancer, conservation therapy. Last screening mammogram was performed 12 month(s) ago. Patient History: Menarche at age 14. First Full-Term at age 21. Postmenopausal. Breast cancer, age 68. 1997, Benign Excisional Biopsy on the left side. 09/28/2018, Lumpectomy on the Right side. 09/28/2018, Malignant Core Biopsy on the right side. 09/08/2018, Malignant Core Biopsy on the right side. Maternal grandmother had breast cancer. Tissue Density: The breast tissue is heterogeneously dense. This may lower the sensitivity of mammography. Findings: Analyzed By CAD. Postoperative changes of right-sided lumpectomy. No recurrent or residual mass identified within either breast. Eggshell calcifications right breast. No suspicious calcifications evident. Overall Assessment: Benign, BI-RAD 2 Management: Diagnostic Mammogram of both breasts in 1 year. A clinical breast exam by your physician is recommended on an annual basis and results should be correlated with mammographic findings. This exam should not preclude additional follow-up of suspicious palpable abnormalities. Results were given to the patient verbally at the time of exam. Electronically signed and approved by: Hernandez Currie M.D. Radiologis
== END | disposition home or self-care (01) ==
LOC: RADMAMWWP 10:38
PROVIDERS: ATTEND Surgery
DX: R92.8 Other abnormal and inconclusive findings on diagnostic imaging of breast (principal); Z80.3 Family history of malignant neoplasm of breast; Z78.0 Asymptomatic menopausal state
CPT/HCPCS: 77062; 77066

== ENCOUNTER → 2022-09-30 | Outpatient (CLI) | payer BC, OTHER ==
--- NOTE | 2022-10-01 19:55 | MM ---
Reason for Exam: Screening (asymptomatic). Last screening mammogram was performed 12 month(s) ago. Patient History: Menarche at age 14. First Full-Term at age 21. Postmenopausal. Breast cancer, right, age 68. Previous chest radiation therapy at age 68. 1997, Benign Excisional Biopsy on the left side. 09/28/2018, Lumpectomy on the Right side. 09/28/2018, Malignant Core Biopsy on the right side. 09/08/2018, Malignant Core Biopsy on the right side. Maternal grandmother had breast cancer. Prior Study Comparison: 09/21/2020 Bilateral Diagnostic Mammogram, [facility]. 03/28/2021 Right Diagnostic Mammogram, [facility]. 09/27/2021 Bilateral MG 3D diag mammo w/cad BRIANA, [facility]. Tissue Density: There are scattered fibroglandular densities. Findings: Analyzed By CAD. Post surgical changes posterior upper outer quadrant right breast. Benign fat necrosis calcifications anteriorly on the right. Microclip also present anterior right breast from prior biopsy. There is no suspicious group of microcalcifications or new suspicious mass in either breast. Overall Assessment: Benign, BI-RAD 2 Management: Screening Mammogram of both breasts in 1 year. . Patient should continue monthly self-breast exams. A clinical breast exam by your physician is recommended on an annual basis. This exam should not preclude additional follow-up of suspicious palpable abnormalities. Electronically signed and approved by: Sagar Brandt M.D. Radiologist
== END | disposition home or self-care (01) ==
LOC: RADMAMWWP 09:28
PROVIDERS: ATTEND Surgery
DX: Z12.31 Encounter for screening mammogram for malignant neoplasm of breast (principal); Z78.0 Asymptomatic menopausal state; Z80.3 Family history of malignant neoplasm of breast
CPT/HCPCS: 77063; 77067

== ENCOUNTER → 2022-11-04 | Outpatient (CLI) | payer BC, OTHER ==
--- NOTE | 2022-11-05 13:01 | XR ---
EXAMINATION TYPE: XR abdomen 1V DATE OF EXAM: 11/04/2022 COMPARISON: CT abdomen pelvis 10/04/2020 HISTORY: Constipation and stomach pain TECHNIQUE: Upright view of the abdomen was obtained with 2 radiographs. FINDINGS: Small bowel demonstrates no evidence for dilatation or air fluid levels. Gas and fecal material is seen in non-distended colon. No convincing evidence for pneumoperitoneum. No unusual calcifications. Cholecystectomy clips in the right upper quadrant. The lung bases are clear. The osseous structures are intact. Degenerative changes of the thoracolumbar spine. IMPRESSION: 1. Overall nonobstructive bowel gas pattern. 2. Mild colonic stool burden.
== END | disposition home or self-care (01) ==
LOC: RADXRMAIN 17:39
PROVIDERS: ATTEND Family Medicine
DX: K59.00 Constipation, unspecified (principal); R14.0 Abdominal distension (gaseous)
CPT/HCPCS: 74018

== ENCOUNTER → 2022-11-12 | Outpatient (CLI) | payer BC, OTHER ==
[2022-11-12 15:57] LABS: ALT 19 U/L (8-44); AST 23 U/L (13-35); Albumin 4.2 d/dL (3.8-4.9); Albumin/Globulin Ratio 1.75 Ratio (1.60-3.17); Alkaline Phosphatase 92 U/L (41-126); BUN/Creat Ratio 14.88 Ratio (12.00-20.00); Blood Urea Nitrogen 11.9 mg/dL (9.0-27.0); Calcium 9.3 mg/dL (8.7-10.3); Carbon Dioxide 27.5 mmol/L (21.6-31.8); Chloride 105 mmol/L (96-109); Globulin 2.4 d/dL (1.6-3.3); Glucose 84 mg/dL (70-110); Potassium 4.2 mmol/L (3.5-5.5); Sodium 143 mmol/L (135-145); Total Bilirubin 0.6 mg/dL (0.3-1.2); Total Protein 6.6 d/dL (6.2-8.2)
[2022-11-12 16:21] LABS: Basophils # (A) 0.03 X 10*3/uL (0.00-0.10); Basophils % (A) 0.5 %; Eosinophils # (A) 0.06 X 10*3/uL (0.04-0.35); HCT 44.2 % (37.2-46.3); HGB 14.6 d/dL (12.0-15.0); Lymphocytes # (A) 1.19 X 10*3/uL (0.90-5.00); Lymphocytes % (A) 19.3 %; MCH 29.4 pg (27.0-32.0); MCV 88.9 FL (80.0-97.0); Mean Platelet Volume 10.8 FL (9.5-12.2); Monocytes # (A) 0.62 X 10*3/uL (0.20-1.00); NRBC Per 100 WBC 0 X 10*3/uL (0.00-0.01); Neutrophils # (A) 4.26 X 10*3/uL (1.80-7.70); Neutrophils % (A) 68.9 %; Platelet Count 209 X 10*3/uL (140-440); RBC 4.97 X 10*6/uL (4.10-5.20); RDW 13.2 % (11.5-14.5); WBC 6.18 X 10*3/uL (4.50-10.00)
[2022-11-12 20:15] LABS: Cancer Antigen 153 23.2 U/mL (0.0-32.3)
== END | disposition home or self-care (01) ==
LOC: LABWHC1 12:15
PROVIDERS: ATTEND Internal Medicine Hematology & Oncology
DX: C50.411 Malignant neoplasm of upper-outer quadrant of right female breast (principal)
CPT/HCPCS: 36415; 80053; 85025; 86300

== ENCOUNTER → 2023-02-11 | Outpatient (CLI) | payer BC ==
[2023-02-11 18:15] LABS: Basophils # (A) 0.03 X 10*3/uL (0.00-0.10); Basophils % (A) 0.5 %; Eosinophils # (A) 0.06 X 10*3/uL (0.04-0.35); Eosinophils % (A) 1.1 %; HCT 46.3 % (37.2-46.3); HGB 15.1 g/dL (12.0-15.0); Lymphocytes # (A) 0.94 X 10*3/uL (0.90-5.00); Lymphocytes % (A) 16.7 %; MCH 29.5 pg (27.0-32.0); MCHC 32.6 g/dL (32.0-37.0); MCV 90.6 FL (80.0-97.0); Mean Platelet Volume 10.1 FL (9.5-12.2); Monocytes # (A) 0.44 X 10*3/uL (0.20-1.00); Monocytes % (A) 7.8 %; NRBC Per 100 WBC 0 X 10*3/uL (0.00-0.01); Neutrophils # (A) 4.13 X 10*3/uL (1.80-7.70); Neutrophils % (A) 73.5 %; Platelet Count 221 X 10*3/uL (140-440); RBC 5.11 X 10*6/uL (4.10-5.20); RDW 12.8 % (11.5-14.5); WBC 5.62 X 10*3/uL (4.50-10.00)
[2023-02-11 18:18] LABS: ALT 21 U/L (8-44); AST 28 U/L (13-35); Albumin 4.3 g/dL (3.8-4.9); Albumin/Globulin Ratio 1.72 Ratio (1.60-3.17); Alkaline Phosphatase 89 U/L (41-126); BUN/Creat Ratio 16.44 Ratio (12.00-20.00); Blood Urea Nitrogen 14.8 mg/dL (9.0-27.0); Calcium 9.6 mg/dL (8.7-10.3); Carbon Dioxide 27.4 mmol/L (21.6-31.8); Chloride 104 mmol/L (96-109); Globulin 2.5 g/dL (1.6-3.3); Glucose 89 mg/dL (70-110); Potassium 4.4 mmol/L (3.5-5.5); Sodium 143 mmol/L (135-145); Total Bilirubin 0.7 mg/dL (0.3-1.2); Total Protein 6.8 g/dL (6.2-8.2)
[2023-02-11 19:51] LABS: Cancer Antigen 153 26.2 U/mL (0.0-32.3)
== END | disposition home or self-care (01) ==
LOC: LABWHC1 14:30
PROVIDERS: ATTEND Internal Medicine Hematology & Oncology
DX: C50.411 Malignant neoplasm of upper-outer quadrant of right female breast (principal); E66.01 Morbid (severe) obesity due to excess calories; Z87.891 Personal history of nicotine dependence
CPT/HCPCS: 36415; 80053; 85025; 86300

== ENCOUNTER → 2023-05-29 | Outpatient (CLI) | payer MEDICARE ==
[2023-05-29 18:05] LABS: Basophils # (A) 0.02 X 10*3/uL (0.00-0.10); Basophils % (A) 0.3 %; Eosinophils # (A) 0.06 X 10*3/uL (0.04-0.35); Eosinophils % (A) 0.8 %; HCT 48.3 % (37.2-46.3); HGB 15.6 g/dL (12.0-15.0); Lymphocytes # (A) 0.91 X 10*3/uL (0.90-5.00); Lymphocytes % (A) 12.1 %; MCH 29.4 pg (27.0-32.0); MCHC 32.3 g/dL (32.0-37.0); MCV 91.1 FL (80.0-97.0); Mean Platelet Volume 10.7 FL (9.5-12.2); Monocytes # (A) 0.61 X 10*3/uL (0.20-1.00); Monocytes % (A) 8.1 %; NRBC Per 100 WBC 0 X 10*3/uL (0.00-0.01); Neutrophils # (A) 5.87 X 10*3/uL (1.80-7.70); Neutrophils % (A) 78.3 %; Platelet Count 228 X 10*3/uL (140-440); RDW 12.9 % (11.5-14.5)
[2023-05-29 18:16] LABS: Erythrocyte Sedimentation Rate 15 mm/Hr (0-30)
[2023-05-29 19:17] LABS: ALT 20 U/L (8-44); AST 22 U/L (13-35); Albumin 4.2 g/dL (3.8-4.9); Albumin/Globulin Ratio 1.62 Ratio (1.60-3.17); Alkaline Phosphatase 93 U/L (41-126); BUN/Creat Ratio 16.89 Ratio (12.00-20.00); Blood Urea Nitrogen 15.2 mg/dL (9.0-27.0); C Reactive Protein <0.30 mg/dL (0.00-0.80); Calcium 9.3 mg/dL (8.7-10.3); Carbon Dioxide 27.6 mmol/L (21.6-31.8); Chloride 104 mmol/L (96-109); Globulin 2.6 g/dL (1.6-3.3); Glucose 93 mg/dL (70-110); Potassium 4.4 mmol/L (3.5-5.5); Sodium 141 mmol/L (135-145); Total Bilirubin 0.7 mg/dL (0.3-1.2); Total Protein 6.8 g/dL (6.2-8.2)
[2023-05-29 20:44] LABS: Cancer Antigen 153 24.9 U/mL (0.0-32.3)
== END | disposition home or self-care (01) ==
LOC: LABWHC1 11:19
PROVIDERS: ATTEND Internal Medicine Hematology & Oncology
DX: C50.411 Malignant neoplasm of upper-outer quadrant of right female breast (principal); M06.9 Rheumatoid arthritis, unspecified; E66.01 Morbid (severe) obesity due to excess calories
CPT/HCPCS: 36415; 80053; 85025; 85652; 86140; 86300

== ENCOUNTER → 2023-08-15 | Outpatient (CLI) | payer MEDICARE ==
[2023-08-15 19:33] LABS: Basophils # (A) 0.04 X 10*3/uL (0.00-0.10); Basophils % (A) 0.6 %; Eosinophils # (A) 0.08 X 10*3/uL (0.04-0.35); Eosinophils % (A) 1.3 %; HCT 47.4 % (37.2-46.3); HGB 15.8 g/dL (12.0-15.0); Lymphocytes # (A) 1.33 X 10*3/uL (0.90-5.00); Lymphocytes % (A) 20.8 %; MCH 28.7 pg (27.0-32.0); MCHC 33.3 g/dL (32.0-37.0); Mean Platelet Volume 10.2 FL (9.5-12.2); Monocytes # (A) 0.53 X 10*3/uL (0.20-1.00); Monocytes % (A) 8.3 %; NRBC Per 100 WBC 0 X 10*3/uL (0.00-0.01); Neutrophils # (A) 4.39 X 10*3/uL (1.80-7.70); Neutrophils % (A) 68.8 %; Platelet Count 222 X 10*3/uL (140-440); RBC 5.51 X 10*6/uL (4.10-5.20); RDW 12.7 % (11.5-14.5); WBC 6.38 X 10*3/uL (4.50-10.00)
[2023-08-15 19:42] LABS: Erythrocyte Sedimentation Rate 34 mm/Hr (0-30)
[2023-08-16 03:16] LABS: Cancer Antigen 153 25.8 U/mL (0.0-32.3)
[2023-08-16 03:51] LABS: ALT 19 U/L (8-44); AST 23 U/L (13-35); Albumin 4.5 g/dL (3.8-4.9); Albumin/Globulin Ratio 1.73 Ratio (1.60-3.17); Alkaline Phosphatase 96 U/L (41-126); BUN/Creat Ratio 18.89 Ratio (12.00-20.00); C Reactive Protein <0.30 mg/dL (0.00-0.80); Calcium 9.6 mg/dL (8.7-10.3); Carbon Dioxide 25.7 mmol/L (21.6-31.8); Chloride 103 mmol/L (96-109); Globulin 2.6 g/dL (1.6-3.3); Glucose 87 mg/dL (70-110); Potassium 4.1 mmol/L (3.5-5.5); Sodium 141 mmol/L (135-145); Total Bilirubin 0.8 mg/dL (0.3-1.2); Total Protein 7.1 g/dL (6.2-8.2)
== END | disposition home or self-care (01) ==
LOC: LABWHC1 16:27
PROVIDERS: ATTEND Internal Medicine Hematology & Oncology
DX: C50.411 Malignant neoplasm of upper-outer quadrant of right female breast (principal); M06.9 Rheumatoid arthritis, unspecified; E66.01 Morbid (severe) obesity due to excess calories
CPT/HCPCS: 36415; 80053; 85025; 85652; 86140; 86300

== ENCOUNTER → 2023-10-13 | Outpatient (CLI) | payer MEDICARE ==
--- NOTE | 2023-10-14 09:44 | MM ---
Reason for Exam: Screening (asymptomatic). Last screening mammogram was performed 12 month(s) ago. Patient History: Menarche at age 14. First Full-Term at age 21. Postmenopausal. Breast cancer, right, age 68. Previous chest radiation therapy at age 68. 1997, Benign Excisional Biopsy on the left side. 09/28/2018, Lumpectomy on the Right side. 09/28/2018, Malignant Core Biopsy on the right side. 09/08/2018, Malignant Core Biopsy on the right side. Maternal grandmother had breast cancer. Daughter had breast cancer, age 48. Prior Study Comparison: 03/28/2021 Right Diagnostic Mammogram, [facility]. 09/27/2021 Bilateral MG 3D diag mammo w/cad BRIANA, [facility]. 09/30/2022 Bilateral MG 3D screening mammo w/cad, [facility]. Tissue Density: There are scattered areas of fibroglandular density. Findings: Analyzed By CAD. There is no suspicious group of microcalcifications or new suspicious mass in either breast. Overall Assessment: Benign, BI-RAD 2 Management: Screening Mammogram of both breasts in 1 year. . Patient should continue monthly self-breast exams. A clinical breast exam by your physician is recommended on an annual basis. This exam should not preclude additional follow-up of suspicious palpable abnormalities. Note on Ruby scores and lifetime risk: 1. A Ruby score greater than 3% is considered moderate risk. If this is the case, consider specialist referral to assess eligibility for a risk reducing agent. 2. If overall lifetime risk for the development of breast cancer is 20% or higher, the patient may qualify for future screening with alternating mammogram and breast MRI. Electronically signed and approved by: Hernandez Currie M.D. Radiologis
== END | disposition home or self-care (01) ==
LOC: RADMAMWWP 10:45
PROVIDERS: ATTEND Surgery
DX: Z12.31 Encounter for screening mammogram for malignant neoplasm of breast (principal); R92.323 Mammographic fibroglandular density, bilateral breasts; Z78.0 Asymptomatic menopausal state; Z80.3 Family history of malignant neoplasm of breast; Z85.3 Personal history of malignant neoplasm of breast
CPT/HCPCS: 77063; 77067

== ENCOUNTER → 2024-01-13 | Outpatient (CLI) | payer MEDICARE ==
[2024-01-13 18:47] LABS: Basophils # (A) 0.04 X 10*3/uL (0.00-0.10); Basophils % (A) 0.7 %; Eosinophils # (A) 0.06 X 10*3/uL (0.04-0.35); Eosinophils % (A) 1.1 %; HCT 45.5 % (37.2-46.3); HGB 15.1 g/dL (12.0-15.0); Lymphocytes # (A) 1.05 X 10*3/uL (0.90-5.00); Lymphocytes % (A) 18.4 %; MCH 29.5 pg (27.0-32.0); MCHC 33.2 g/dL (32.0-37.0); Mean Platelet Volume 10.4 FL (9.5-12.2); Monocytes # (A) 0.53 X 10*3/uL (0.20-1.00); Monocytes % (A) 9.3 %; NRBC Per 100 WBC 0 X 10*3/uL (0.00-0.01); Neutrophils % (A) 70.1 %; Platelet Count 212 X 10*3/uL (140-440); RBC 5.11 X 10*6/uL (4.10-5.20); RDW 12.7 % (11.5-14.5)
[2024-01-13 19:18] LABS: ALT 17 U/L (8-44); AST 21 U/L (13-35); Albumin 4.1 g/dL (3.8-4.9); Albumin/Globulin Ratio 1.64 Ratio (1.60-3.17); Alkaline Phosphatase 97 U/L (41-126); BUN/Creat Ratio 19.78 Ratio (12.00-20.00); Blood Urea Nitrogen 17.8 mg/dL (9.0-27.0); Calcium 9.1 mg/dL (8.7-10.3); Cancer Antigen 153 26.3 U/mL (0.0-32.3); Carbon Dioxide 25.5 mmol/L (21.6-31.8); Chloride 105 mmol/L (96-109); Globulin 2.5 g/dL (1.6-3.3); Glucose 101 mg/dL (70-110); Potassium 4.2 mmol/L (3.5-5.5); Sodium 141 mmol/L (135-145); Total Bilirubin 0.5 mg/dL (0.3-1.2); Total Protein 6.6 g/dL (6.2-8.2)
== END | disposition home or self-care (01) ==
LOC: LABWHC1 13:20
PROVIDERS: ATTEND Internal Medicine Hematology & Oncology
CPT/HCPCS: 36415; 80053; 85025; 86300

== ENCOUNTER → 2024-04-06 | Outpatient (CLI) | payer MEDICARE ==
[2024-04-06 18:22] LABS: Basophils # (A) 0.04 X 10*3/uL (0.00-0.10); Basophils % (A) 0.7 %; Eosinophils # (A) 0.11 X 10*3/uL (0.04-0.35); HCT 46.8 % (37.2-46.3); HGB 15.2 g/dL (12.0-15.0); Lymphocytes # (A) 0.94 X 10*3/uL (0.90-5.00); Lymphocytes % (A) 17.3 %; MCHC 32.5 g/dL (32.0-37.0); MCV 89.3 FL (80.0-97.0); Mean Platelet Volume 9.9 FL (9.5-12.2); Monocytes # (A) 0.41 X 10*3/uL (0.20-1.00); Monocytes % (A) 7.6 %; NRBC Per 100 WBC 0 X 10*3/uL (0.00-0.01); Neutrophils % (A) 71.8 %; Platelet Count 258 X 10*3/uL (140-440); RBC 5.24 X 10*6/uL (4.10-5.20); RDW 13.1 % (11.5-14.5); WBC 5.43 X 10*3/uL (4.50-10.00)
[2024-04-06 19:23] LABS: Cancer Antigen 153 22.5 U/mL (0.0-32.3)
[2024-04-06 19:35] LABS: ALT 46 U/L (8-44); AST 32 U/L (13-35); Albumin 4.1 g/dL (3.8-4.9); Albumin/Globulin Ratio 1.58 Ratio (1.60-3.17); Alkaline Phosphatase 98 U/L (41-126); BUN/Creat Ratio 12.88 Ratio (12.00-20.00); Blood Urea Nitrogen 10.3 mg/dL (9.0-27.0); Calcium 9.2 mg/dL (8.7-10.3); Carbon Dioxide 27.6 mmol/L (21.6-31.8); Chloride 104 mmol/L (96-109); Globulin 2.6 g/dL (1.6-3.3); Glucose 75 mg/dL (70-110); Potassium 3.9 mmol/L (3.5-5.5); Sodium 144 mmol/L (135-145); Total Bilirubin 0.6 mg/dL (0.3-1.2); Total Protein 6.7 g/dL (6.2-8.2)
== END | disposition home or self-care (01) ==
LOC: LABWHC1 08:13
PROVIDERS: ATTEND Internal Medicine Hematology & Oncology
DX: C50.411 Malignant neoplasm of upper-outer quadrant of right female breast (principal); Z87.891 Personal history of nicotine dependence
CPT/HCPCS: 36415; 80053; 85025; 86300

== ENCOUNTER → 2024-07-09 | Outpatient (CLI) | payer MEDICARE ==
[2024-07-09 15:14] LABS: Basophils # (A) 0.05 X 10*3/uL (0.00-0.10); Basophils % (A) 0.9 %; Eosinophils # (A) 0.07 X 10*3/uL (0.04-0.35); Eosinophils % (A) 1.3 %; HCT 48.6 % (37.2-46.3); HGB 15.8 g/dL (12.0-15.0); Lymphocytes % (A) 18.1 %; MCHC 32.5 g/dL (32.0-37.0); MCV 89.2 FL (80.0-97.0); Mean Platelet Volume 9.9 FL (9.5-12.2); Monocytes # (A) 0.55 X 10*3/uL (0.20-1.00); Monocytes % (A) 9.9 %; NRBC Per 100 WBC 0 X 10*3/uL (0.00-0.01); Neutrophils # (A) 3.82 X 10*3/uL (1.80-7.70); Neutrophils % (A) 69.1 %; Platelet Count 219 X 10*3/uL (140-440); RBC 5.45 X 10*6/uL (4.10-5.20); RDW 12.7 % (11.5-14.5); WBC 5.53 X 10*3/uL (4.50-10.00)
[2024-07-09 15:34] LABS: ALT 20 U/L (8-44); AST 25 U/L (13-35); Albumin 4.2 g/dL (3.8-4.9); Albumin/Globulin Ratio 1.68 Ratio (1.60-3.17); Alkaline Phosphatase 99 U/L (41-126); Blood Urea Nitrogen 13.6 mg/dL (9.0-27.0); Calcium 9.4 mg/dL (8.7-10.3); Carbon Dioxide 27.8 mmol/L (21.6-31.8); Chloride 106 mmol/L (96-109); Globulin 2.5 g/dL (1.6-3.3); Glucose 99 mg/dL (70-110); Potassium 4.5 mmol/L (3.5-5.5); Sodium 142 mmol/L (135-145); Total Bilirubin 0.6 mg/dL (0.3-1.2); Total Protein 6.7 g/dL (6.2-8.2)
[2024-07-09 17:17] LABS: Cancer Antigen 153 22.5 U/mL (0.0-32.3)
== END | disposition home or self-care (01) ==
LOC: LABWHC1 12:17
PROVIDERS: ATTEND Internal Medicine Hematology & Oncology
DX: C50.411 Malignant neoplasm of upper-outer quadrant of right female breast (principal); E66.01 Morbid (severe) obesity due to excess calories
CPT/HCPCS: 36415; 80053; 85025; 86300

== ENCOUNTER 2024-09-04 21:40 | Observation (INO) | payer MEDICARE ==
[2024-09-04 21:45] VITALS: TEMP 97.8
[2024-09-04 22:40] LABS: Basophils # (A) 0.03 10*3/uL (0.00-0.10); Basophils % (A) 0.5 %; Eosinophils # (A) 0.13 10*3/uL (0.04-0.35); HCT 44.7 % (37.2-46.3); HGB 15.1 g/dL (12.0-15.0); Lymphocytes # (A) 1.11 10*3/uL (0.90-5.00); Lymphocytes % (A) 17.5 %; MCH 29.6 pg (27.0-32.0); MCHC 33.8 g/dL (32.0-37.0); MCV 87.6 fL (80.0-97.0); Mean Platelet Volume 9.4 fL (9.5-12.2); Monocytes % (A) 9.4 %; Neutrophils # (A) 4.45 10*3/uL (1.80-7.70); Neutrophils % (A) 70.1 %; Platelet Count 199 10*3/uL (140-440); RDW 12.7 % (11.5-14.5); WBC 6.35 10*3/uL (4.50-10.00)
[2024-09-04 22:52] LABS: ALT 19 U/L (4-34); AST 27 U/L (14-36); African American GFR (CKD) 82 (>60 ml/min/1.73 sqM); Albumin 4.4 g/dL (3.5-5.0); Alkaline Phosphatase 127 U/L (38-126); Anion Gap 12 mmol/L; Blood Urea Nitrogen 18 mg/dL (7-17); Calcium 9.4 mg/dL (8.4-10.2); Carbon Dioxide 24 mmol/L (22-30); Chloride 103 mmol/L (98-107); Glucose 92 mg/dL (74-99); Lipase 92 U/L (23-300); Magnesium 1.8 mg/dL (1.6-2.3); Non-African American GFR(CKD) 71 (>60 ml/min/1.73 sqM); Potassium 4.2 mmol/L (3.5-5.1); Sodium 139 mmol/L (137-145); Total Bilirubin 0.6 mg/dL (0.2-1.3); Total Protein 7.2 g/dL (6.3-8.2)
[2024-09-04 22:56] LABS: Partial Thromboplastin Time 23.8 sec (22.0-30.0); Prothrombin Time 10.8 sec (10.0-12.5)
--- NOTE | 2024-09-04 22:59 | ED ---
Chest Pain HPI - General Chief Complaint: Chest Pain Stated Complaint: chest pain Time Seen by Provider: 09/04/24 21:57 Source: patient Mode of arrival: ambulatory Limitations: no limitations - History of Present Illness Initial Comments: This is a 74 female with chest pain prior to arrival symptoms are right-sided tightness having into her right jaw and to her right tooth. Symptoms have been persistent and she does have concern for heart history. Patient has history of palpitations no formal history of carotid disease. Does suffer from high blood pressure MD Complaint: chest pain -: hour(s) (3) Onset: during rest Pain Location: right chest Pain Radiation: jaw/teeth Severity: moderate Severity scale (1-10): 7 Quality: tightness, other (Burning) Consistency: constant Improves With: nothing Worsens With: nothing Other Symptoms: acid taste in mouth Treatments Prior to Arrival: none - Related Data Home Medications Medication Instructions Recorded Confirmed Triamterene-Hctz 37.5-25Mg 1 cap PO Q48H 09/02/17 11/16/20 [Dyazide 37.5-25 Capsule] atenoloL [Tenormin] 25 mg PO 1200 09/02/17 11/16/20 Anastrozole [Arimidex] 1 mg PO Q48H 04/16/19 11/16/20 Cholecalciferol [Vitamin D3 (25 2,000 unit PO DAILY 04/16/19 11/16/20 Mcg = 1000 Iu)] Famotidine [Pepcid] 20 mg PO BID 11/16/20 11/16/20 Previous Rx's Medication Instructions Recorded Acetaminophen Tab [Tylenol] 650 mg PO Q6HR PRN tab 10/12/20 Allergies Allergy/AdvReac Type Severity Reaction Status Date / Time azithromycin Allergy Swelling Verified 09/04/24 21:41 codeine Allergy Rash/Hives Verified 09/04/24 21:41 epinephrine Allergy Rapid Verified 09/04/24 21:41 Heart Rate erythromycin base Allergy Rash/Hives Verified 09/04/24 21:41 Iodinated Contrast Media Allergy Dyspnea Verified 09/04/24 21:41 [Iodinated Contrast- Oral and IV Dye] Penicillins Allergy Swelling Verified 09/04/24 21:41 prednisolone Allergy Rash/Hives Verified 09/04/24 21:41 silver sulfadiazine Allergy Rash/Hives Verified 09/04/24 21:41 [From Silvadene] sulfamethoxazole Allergy Rash/Hives Verified 09/04/24 21:41 [From Bactrim] trimethoprim [From Bactrim] Allergy Rash/Hives Verified 09/04/24 21:41 Review of Systems ROS Statement: Those systems with pertinent positive or pertinent negative responses have been documented in the HPI. ROS Other: All systems not noted in ROS Statement are negative. EKG Findings - EKG Comments: EKG Findings:: EKG is sinus 68 AK 139 QRS 102 QTc 426. Repeat. EKG is sinus 66 AK 139 QRS 104 QTc [address] progression - EKG Results: EKG: interpreted by PJ Past Medical History Past Medical History: Hypertension, Sleep Apnea/CPAP/BIPAP Additional Past Medical History / Comment(s): Patient wears a wig. Gout, bilateral glaucoma, Menieres's. Hx irregular heartbeat/tachycardic episodes. Hx stage 0 papiloma right breast. Hx dvt/phebetis in the . ? sleep apnea, needs to have sleep study done, heart murmur History of Any Multi-Drug Resistant Organisms: None Reported Past Surgical History: Appendectomy, Bowel Resection, Cholecystectomy, Tonsillectomy Additional Past Surgical History / Comment(s): Uterine suspension, ultrasound core biopsy right breast X2, right breast lumpectomy-2014. Additional Past Anesthesia/Blood Transfusion Reaction / Comment(s): Combative after general anesthesia, difficulty breathing coming out of anesthesia. Patient states does not require a lot of medication to put her out. Dizzinesss with antinausea medication. Some nausea after anesthesia. Past Psychological History: No Psychological Hx Reported Smoking Status: Never smoker Past Alcohol Use History: None Reported Past Drug Use History: None Reported - Past Family History Mother Family Medical History: Cancer, Deep Vein Thrombosis (DVT) Brother(s) Family Medical History: Cancer General Exam Limitations: no limitations General appearance: alert, in no apparent distress Head exam: Present: atraumatic, normocephalic, normal inspection Eye exam: Present: normal appearance, PERRL, EOMI. Absent: scleral icterus, conjunctival injection, periorbital swelling ENT exam: Present: normal exam, mucous membranes moist Neck exam: Present: normal inspection. Absent: tenderness, meningismus, lymphadenopathy Respiratory exam: Present: normal lung sounds bilaterally. Absent: respiratory distress, wheezes, rales, rhonchi, stridor Cardiovascular Exam: Present: regular rate, normal rhythm, normal heart sounds. Absent: systolic murmur, diastolic murmur, rubs, gallop, clicks GI/Abdominal exam: Present: soft, normal bowel sounds. Absent: distended, tenderness, guarding, rebound, rigid Extremities exam: Present: normal inspection, full ROM, normal capillary refill. Absent: tenderness, pedal edema, joint swelling, calf tenderness Back exam: Present: normal inspection Neurological exam: Present: alert, oriented X3, CN II-XII intact Psychiatric exam: Present: normal affect, normal mood Skin exam: Present: warm, dry, intact, normal color. Absent: rash Course Vital Signs 09/04/24 09/04/24 21:42 23:22 Temperature 97.8 F Pulse Rate 74 66 Respiratory 18 18 Rate Blood Pressure 199/85 184/77 O2 Sat by Pulse 96 97 Oximetry - Reevaluation(s) Reevaluation #1: 09/04/24 22:59 Medical records reviewed Reevaluation #2: 09/05/24 00:25 Patient still with chest pain here in the ER Reevaluation #3: 09/05/24 00:25 Patient informed of results questions answered Reevaluation #4: Was pt. sent in by a medical professional or institution ([facility], [employer], urgent care, hospital, or long term...) When possible be specific @ -no Did you speak to anyone other than the patient for history (EMS, parent, family, police, friend...)? What history was obtained from this source @ -no Did you review nursing and triage notes (agree or disagree)? Why? @ -agree Are old charts reviewed (outside hosp., previous admission, EMS record, old EKG, old radiological studies, urgent care reports/EKG's, long term records)? Report findings @ -yes Differential Diagnosis (chest pain, altered mental status, abdominal pain women, abdominal pain men, vaginal bleeding, weakness, fever, dyspnea, syncope, headache, dizziness, GI bleed, back pain, seizure, CVA, palpatations, mental health, musculoskeletal)? @ -prior EKG interpreted by me (3pts min.). @ -yes X-rays interpreted by me (1pt min.). @ -yes negative for acute disease CT interpreted by me (1pt min.). @ -no U/S interpreted by me (1pt. min.). @ -no What testing was considered but not performed or refused? (CT, X-rays, U/S, labs)? Why? @ -none What meds were considered but not given or refused? Why? @ -none Did you discuss the management of the patient with other professionals (professionals i.e. DrBraulio, PA, DA[employer]Y SCIENCE TEACHER, lab, RT, psych nurse, social insurance specialist, cardiovascular invasive specialist, teacher, training systems officer, case consultant)? Give summary @ -no Was smoking cessation discussed for >3mins.? @ -no Was critical care preformed (if so, how long)? @ -no Were there social determinants of health that impacted care today? How? (Homelessness, low income, unemployed, alcoholism, drug addiction, transportation, low edu. Level, literacy, decrease access to med. care, correction, rehab)? @ -none Was there de-escalation of care discussed even if they declined (Discuss DNR or withdrawal of care, Hospice)? DNR status @ -no What co-morbidities impacted this encounter? (DM, HTN, Smoking, COPD, CAD, Cancer, CVA, ARF, Chemo, Hep., AIDS, mental health diagnosis, sleep apnea, mo rbid obesity)? @ -none Was patient admitted / discharged? Hospital course, mention meds given and route, prescriptions, significant lab abnormalities, going to OR and other pertinent info. @ - Undiagnosed new problem with uncertain prognosis? @ -no Drug Therapy requiring intensive monitoring for toxicity (Heparin, Nitro, Insulin, Cardizem)? @ -no Were any procedures done? @ -no Diagnosis/symptom? @ - Acute, or Chronic, or Acute on Chronic? @ -Acute Uncomplicated (without systemic symptoms) or Complicated (systemic symptoms)? @ -Complicated Side effects of treatment? @ -no Exacerbation, Progression, or Severe Exacerbation? @ -exacerbation Poses a threat to life or bodily function? How? (Chest pain, [place], [place], pneumonia, PE, COPD, DKA, ARF, appy, cholecystitis, CVA, Diverticulitis, Homicidal, Suicidal, threat to staff... and all critical care pts) @ -yes Reevaluation #5: Differential Chest Pain: Stable Angina, Unstable Angina, STEMI, NSTEMI Aortic Dissection, Pneumothorax, Musculoskeletal, Esophageal Spasm GERD, Cholecystitis, Pancreatitis, Zoster, this is not meant to be an all-inclusive list. - Consultations Consultation #1: Pain spoke with [facility] who agrees to admit this patient Chest Pain MDM - MDM 74 female to the ER for evaluation of chest pain. Right-sided chest pain to the jaw to the tooth chest pain has been sitting on the right side of her chest to her chin and is persistent throughout ER stay troponin negative EKG negative patient admitted for cardiac ops Disposition Clinical Impression: Chest pain, Atypical chest pain Disposition: ADMITTED IP TO THIS HOSP Condition: Fair Is patient prescribed a controlled substance at d/c from ED?: No Referrals: Lydia Milan MD [Primary Care Provider] - 1-2 days Time of Disposition: 00:20
[2024-09-04 23:00] LABS: NT-Pro-B-Type Natriuretic Pept 311 pg/mL
--- NOTE | 2024-09-04 23:11 | XR ---
EXAM: XR Chest, 2 Views CLINICAL HISTORY: ITS.REASON XR Reason: Chest Pain TECHNIQUE: Frontal and lateral views of the chest. COMPARISON: 05/08/2019 FINDINGS: Lungs: No consolidation. Pleural space: No significant pleural effusion. No pneumothorax. Heart: No cardiomegaly or pulmonary vascular congestion. Bones/joints: No acute fracture. No dislocation. IMPRESSION: No evidence of acute cardiopulmonary disease.
[2024-09-05] MEDS ORDERED: NALOXONE 0.4 MG/ML 1 ML VIAL IV PRN (00:23)
[2024-09-05] MEDS ORDERED: ONDANSETRON 4 MG/2 ML VIAL IVP PRN (00:23)
[2024-09-05] MEDS ORDERED: ACETAMINOPHEN TAB 325 MG TAB PO PRN (00:45)
[2024-09-05] MEDS: ACETAMINOPHEN TAB 500 MG TAB PO STA (01:27)
[2024-09-05] MEDS: SODIUM CHLORIDE 0.9% 1,000 ML IV SCH (02:36)
[2024-09-05 09:50] VITALS: BP 154/66; PULSE 56
[2024-09-05] MEDS ORDERED: LOSARTAN 25 MG TAB PO SCH (10:30)
[2024-09-05] MEDS ORDERED: ASPIRIN 81 MG PO SCH (10:30)
--- NOTE | 2024-09-05 11:39 | P.CRDCN ---
History of Present Illness Consult date: 09/05/24 History of present illness: HISTORY OF PRESENTING ILLNESS: Patient is a 74-year-old female who presented to the hospital because of right- sided substernal chest pressure which is radiating to her right jaw. The symptoms started with resting. There is no particular exacerbating or elevating factor. At the time of evaluation she is chest pain free. Chest x-ray does not show signs of pulmonary congestion or consolidation EKG shows sinus rhythm, low voltage complexes throughout precordium, heart rate 66 bpm REVIEW OF SYSTEMS: 14 point review of system is negative except what is mentioned above in HPI. PHYSICAL EXAMINATION: Neck: Brisk carotid upstroke, no jugular venous distention. Lungs: Clear to auscultation. Heart: Regular rate and rhythm, S1-S2, , no murmur or rub. Abdomen: Soft nontender, positive bowel sounds. Extremities: No edema, intact distal pulses. Neuro: Alert, oritented, no focal deficits. Detailed neuro exam was not performed. ASSESSMENT: # Atypical chest pain, rule out of ACS with negative troponin and normal NT- proBNP # Essential hypertension # Obesity PLAN: She is very eager to go home. I offered her to stay and perform a cardiac stress test however she is denying getting it done until she sees Dr. Delgado on outpatient basis. She understands the risk factors I will start her on aspirin dual milligrams, Lipitor 40 mg, losartan 25 mg in interim Continue atenolol Obtain A1c lipid TSH levels Wei Gan MD, [facility] Thank you for allowing [facility] to participate in this patient's care. Feel free to reach out in case of any followup questions. Past Medical History Past Medical History: Hypertension, Sleep Apnea/CPAP/BIPAP Additional Past Medical History / Comment(s): Patient wears a wig. Gout, bilateral glaucoma, Menieres's. Hx irregular heartbeat/tachycardic episodes. Hx stage 0 papiloma right breast. Hx dvt/phebetis in the . ? sleep apnea, needs to have sleep study done, heart murmur History of Any Multi-Drug Resistant Organisms: None Reported Past Surgical History: Appendectomy, Bowel Resection, Cholecystectomy, Tonsillectomy Additional Past Surgical History / Comment(s): Uterine suspension, ultrasound core biopsy right breast X2, right breast lumpectomy-2014. Additional Past Anesthesia/Blood Transfusion Reaction / Comment(s): Combative after general anesthesia, difficulty breathing coming out of anesthesia. Patient states does not require a lot of medication to put her out. Dizzinesss with antinausea medication. Some nausea after anesthesia. Past Psychological History: No Psychological Hx Reported Smoking Status: Never smoker Past Alcohol Use History: None Reported Past Drug Use History: None Reported - Past Family History Mother Family Medical History: Cancer, Deep Vein Thrombosis (DVT) Brother(s) Family Medical History: Cancer Medications and Allergies Home Medications Medication Instructions Recorded Confirmed Type atenoloL [Tenormin] 25 mg PO HS 09/02/17 09/05/24 History Cholecalciferol [Vitamin D3 (25 50 mcg PO DAILY 04/16/19 09/05/24 History Mcg = 1000 Iu)] Famotidine [Pepcid] 20 mg PO BID 11/16/20 09/05/24 History Artificial Tears-Hypromellose 2 drops BOTH EYES QID PRN 09/05/24 09/05/24 History [Artificial Tear Drops] prednisoLONE ACETATE 1% OPHTH 1 drop LEFT EYE BID 09/05/24 09/05/24 History [Pred Forte 1%] Allergies Allergy/AdvReac Type Severity Reaction Status Date / Time azithromycin Allergy Swelling Verified 09/05/24 11:15 codeine Allergy Rash/Hives Verified 09/05/24 11:15 epinephrine Allergy Rapid Verified 09/05/24 11:15 Heart Rate erythromycin base Allergy Rash/Hives Verified 09/05/24 11:15 Iodinated Contrast Media Allergy Dyspnea Verified 09/05/24 11:15 [Iodinated Contrast- Oral and IV Dye] Penicillins Allergy Swelling Verified 09/05/24 11:15 prednisolone Allergy Rash/Hives Verified 09/05/24 11:15 silver sulfadiazine Allergy Rash/Hives Verified 09/05/24 11:15 [From Silvadene] sulfamethoxazole Allergy Rash/Hives Verified 09/05/24 11:15 [From Bactrim] trimethoprim [From Bactrim] Allergy Rash/Hives Verified 09/05/24 11:15 Physical Exam Vitals: Vital Signs Temp Pulse Pulse Resp BP BP Pulse Ox 09/05/24 08:00 56 L 09/05/24 07:00 97.8 F 56 L 16 154/66 96 06/22/25 06:53 60 16 153/95 97 09/05/24 01:13 58 L 16 156/80 97 09/04/24 23:22 66 18 184/77 97 09/04/24 21:42 97.8 F 74 18 199/85 96 Intake and Output 09/04/24 09/05/24 09/05/24 22:59 06:59 14:59 Other: Weight 113.398 kg Results 09/04/24 22:22 09/04/24 22:22 Cardiac Enzymes 09/04/24 09/04/24 09/05/24 Range/Units 22:22 22:22 03:13 AST 27 (14-36) U/L Troponin I <0.012 <0.012 (0.000-0.034) ng/mL 09/05/24 Range/Units 06:57 AST (14-36) U/L Troponin I <0.012 (0.000-0.034) ng/mL Coagulation 09/04/24 Range/Units 22:22 PT 10.8 (10.0-12.5) sec APTT 23.8 (22.0-30.0) sec CBC 09/04/24 Range/Units 22:22 WBC 6.35 (4.50-10.00) 10*3/uL RBC 5.10 (4.10-5.20) 10*6/uL Hgb 15.1 H (12.0-15.0) g/dL Hct 44.7 (37.2-46.3) % Plt Count 199 (140-440) 10*3/uL Comprehensive Metabolic Panel 09/04/24 Range/Units 22:22 Sodium 139 (137-145) mmol/L Potassium 4.2 (3.5-5.1) mmol/L Chloride 103 (98-107) mmol/L Carbon Dioxide 24 (22-30) mmol/L BUN 18 H (7-17) mg/dL Creatinine 0.83 (0.52-1.04) mg/dL Glucose 92 (74-99) mg/dL Calcium 9.4 (8.4-10.2) mg/dL AST 27 (14-36) U/L ALT 19 (4-34) U/L Alkaline Phosphatase 127 H (38-126) U/L Total Protein 7.2 (6.3-8.2) g/dL Albumin 4.4 (3.5-5.0) g/dL Current Medications Generic Name Dose Route Start Last Admin Trade Name Arshq PRN Reason Stop Dose Admin Acetaminophen 650 mg 09/05/24 00:45 Acetaminophen Tab 325 Mg Tab PO Q4HR PRN Fever and/ or Pain Aspirin 81 mg 09/05/24 10:30 Aspirin 81 Mg PO DAILY ALFREDO Atenolol 25 mg 09/05/24 11:45 Atenolol 25 Mg Tab PO DAILY ALFREDO Atorvastatin Calcium 40 mg 09/05/24 21:00 Atorvastatin 40 Mg Tab PO HS ALFREDO Sodium Chloride 1,000 mls @ 20 mls/hr 09/05/24 00:30 09/05/24 02:36 Saline 0.9% IV 20 mls/hr .Q24H ALFREDO Administration Losartan Potassium 25 mg 09/05/24 10:30 Losartan 25 Mg Tab PO DAILY ALFREDO Naloxone HCl 0.2 mg 09/05/24 00:23 Naloxone 0.4 Mg/Ml 1 Ml Vial IV Q2M PRN Opioid Reversal Ondansetron HCl 4 mg 09/05/24 00:23 Ondansetron 4 Mg/2 Ml Vial IVP Q8HR PRN Nausea And Vomiting Triamterene/Hydrochlorothiazide 1 each 09/05/24 10:30 Triamterene-Hctz 37.5-25mg 1 Each Cap PO DAILY ALFREDO Intake and Output 09/04/24 09/05/24 09/05/24 22:59 06:59 14:59 Other: Weight 113.398 kg 09/04/24 22:22 09/04/24 22:22
[2024-09-05 11:41] VITALS: RESP 18
[2024-09-05] MEDS: TRIAMTERENE-HCTZ 37.5-25MG 1 EACH CAP PO SCH (11:45)
[2024-09-05] MEDS: atenoloL 25 MG TAB PO SCH (11:46)
[2024-09-05 14:19] LABS: Chol/HDL Ratio 3.87 Ratio
[2024-09-05] MEDS ORDERED: ATORVASTATIN 40 MG TAB PO SCH (21:00)
== END 2024-09-05 14:21 | disposition home or self-care (01) ==
LOC: EC 21:40 → 6NMEDSUR 09-05 00:24
PROVIDERS: ADMIT Hospitalist; ATTEND Hospitalist
DX: R07.89 Other chest pain (principal); I10 Essential (primary) hypertension; E66.9 Obesity, unspecified; G47.30 Sleep apnea, unspecified; Z79.899 Other long term (current) drug therapy; Z86.718 Personal history of other venous thrombosis and embolism; Z88.6 Allergy status to analgesic agent; Z88.5 Allergy status to narcotic agent; Z88.0 Allergy status to penicillin; Z88.2 Allergy status to sulfonamides; Z91.041 Radiographic dye allergy status
CPT/HCPCS: 99285; 36415; 93005; 85379; 83880; 80061; 80053; 84443; 83690; 83735; 84484 ×2; 85025; 85610; 85730; 83036; 71046; G0378

== ENCOUNTER → 2024-10-15 | Outpatient (CLI) | payer MEDICARE ==
--- NOTE | 2024-10-15 17:54 | MM ---
Reason for Exam: Screening (asymptomatic). Last mammogram was performed 1 year(s) and 1 month(s) ago. Patient History: Menarche at age 14. First Full-Term at age 21. Postmenopausal. Patient has history of breast feeding. Breast cancer, right, age 68. Previous chest radiation therapy at age 68. 1997, Benign Excisional Biopsy on the left side. 09/28/2018, Lumpectomy on the Right side. 09/28/2018, Malignant Core Biopsy on the right side. 09/08/2018, Malignant Core Biopsy on the right side. Maternal grandmother had breast cancer. Daughter had breast cancer, age 48. Prior Study Comparison: 03/05/2019 Bilateral Diagnostic Mammogram, [facility]. 01/27/2020 Bilateral Diagnostic Mammogram, [facility]. 09/21/2020 Bilateral Diagnostic Mammogram, [facility]. 03/28/2021 Right Diagnostic Mammogram, [facility]. 09/27/2021 Bilateral MG 3D diag mammo w/cad BRIANA, [facility]. 09/30/2022 Bilateral MG 3D screening mammo w/cad, [facility]. 10/13/2023 Bilateral MG 3D screening mammo w/cad, [facility]. Tissue Density: There are scattered areas of fibroglandular density. Findings: Analyzed By CAD. Postsurgical and posttreatment changes in the right. Area of fat necrosis calcification anterior right breast is unchanged. Areas of asymmetric density on the left are unchanged. There is no suspicious group of microcalcifications or new suspicious mass in either breast. Overall Assessment: Benign, BI-RAD 2 Management: Screening Mammogram of both breasts in 1 year. Patient should continue monthly self-breast exams. A clinical breast exam by your physician is recommended on an annual basis. This exam should not preclude additional follow-up of suspicious palpable abnormalities. Note on Ruby scores and lifetime risk: 1. A Ruby score greater than 3% is considered moderate risk. If this is the case, consider specialist referral to assess eligibility for a risk reducing agent. 2. If overall lifetime risk for the development of breast cancer is 20% or higher, the patient may qualify for future screening with alternating mammogram and breast MRI. [facility], , 10/15/2024 5:51 PM. Electronically signed and approved by: Sagar Brandt M.D. Radiologist
== END | disposition home or self-care (01) ==
LOC: RADMAMWWP 10:00
PROVIDERS: ATTEND Surgery
DX: Z12.31 Encounter for screening mammogram for malignant neoplasm of breast (principal); R92.323 Mammographic fibroglandular density, bilateral breasts; R92.1 Mammographic calcification found on diagnostic imaging of breast; Z80.3 Family history of malignant neoplasm of breast; Z78.0 Asymptomatic menopausal state; Z85.3 Personal history of malignant neoplasm of breast
CPT/HCPCS: 77063; 77067